=== PATIENT | female | born 1965 | race African-American/Black ===

== ENCOUNTER 2016-05-27 11:12 | Inpatient (IN) | payer MEDICAID, OTHER ==
[~2016-05-27] VITALS: Ht 33 cm; Wt 183.4 kg
[~2016-05-27 11:12] MED LIST: ALBU18 IN; ALPR1TAB2 PO; ASPI81TA27 PO; ATEN-60 PO; BACL10TA PO; BECL80AE9 IN; DIPH50TA PO; FURO80TA PO; GABA600T PO; HYDR-2651 PO; INSLANTI SC; INSUINJ; MECL25CH20 PO; NOR10T PO; POTA20PO13 PO; SIMV-13 PO; [UNRECOGNIZED DRUG - CODE] TL
[2016-05-27 11:48] LABS: Basophils # (auto) 0 uL; Basophils % (auto) 0.4 % (0.0-2.0); DEFINITIVE VIEW TRANSMISSION; Eosinophils # (auto) 0.3 uL; Eosinophils % (auto) 4.6 % (0.0-7.0); Hematocrit 45.1 % (36.0-46.0); Hemoglobin 14.4 g/dL (12.2-16.2); Lymphocytes # (auto) 1.8 uL; Lymphocytes % (auto) 28.8 % (10.0-50.0); Mean Corpuscular Hemoglobin 26.8 pg (28.0-32.0); Mean Corpuscular Volume 83.8 fL (80.0-100.0); Mean Platelet Volume 8.2 fL (7.4-10.4); Monocytes # (auto) 0.6 uL; Monocytes % (auto) 10.1 % (0.0-12.0); Neutrophils # (auto) 3.5 uL; Neutrophils % (auto) 56.1 % (37.0-80.0); Platelet Count (auto) 299 10^3/uL (140-450); Red Cell Distribution Width 13.9 % (11.6-16.0); White Blood Cell 6.2 10^3/uL (4.4-10.8)
[2016-05-27 12:17] LABS: Albumin 3.2 g/dL (3.4-5.0); Alkaline Phosphatase 136 U/L (45-117); Anion Gap 8 (5-15); Aspartate Aminotransferase 20 U/L (15-37); Bilirubin, Total 0.2 mg/dL (0.2-1.0); Blood Urea Nitrogen 15 mg/dL (7-18); Calcium 8.7 mg/dL (8.5-10.1); Carbon Dioxide 32 mmol/L (21-32); Chloride 99 mmol/L (98-107); GFR African American 80 mL/min; GFR Non-African American 66 mL/min; Glucose 369 mg/dL (74-106); Potassium 4.5 mmol/L (3.5-5.1); Sodium 139 mmol/L (136-145); Total Protein 6.7 g/dL (6.4-8.2)
[2016-05-27 12:50] LABS: Urine Bilirubin Negative (Negative); Urine Blood Negative /uL (Negative); Urine Color Yellow (Yellow); Urine Ketone Negative (Negative); Urine Nitrite Negative (Negative); Urine RBC <1 /hpf (0 - 4); Urine Urobilinogen Normal (Negative)
[2016-05-27 12:53] LABS: Urine Glucose 4+ mg/dL (Normal)
[2016-05-27] MEDS ORDERED: SODIUM CHLORIDE 0.9% 1,000 ML IVB ONE (13:22)
[2016-05-27] MEDS ORDERED: cefTRIAXone 1GM/50ML D5W 50 ML IV ONE (13:30)
[2016-05-27] MEDS ORDERED: LORazepam 2MG/ML-1ML VIAL ONE (13:41)
[2016-05-27] MEDS ORDERED: LORazepam 2MG/ML-1ML VIAL IV ONE (13:45)
[2016-05-27 15:03] LABS: Magnesium 2.1 mg/dL (1.6-2.6)
[2016-05-27] MEDS ORDERED: NALBUPHINE HCL 10 MG/1ml INJECTION IV ONE (16:30)
[2016-05-27] MEDS ORDERED: BACLOFEN 10 MG TAB PO PRN (17:30)
[2016-05-27] MEDS ORDERED: hydrALAZINE HCL 25 MG TAB PO PRN (17:30)
[2016-05-27] MEDS ORDERED: DEXTROSE (50%) 50ML SYRG IV PRN (17:30)
[2016-05-27] MEDS ORDERED: ACETAMINOPHEN 325 MG TAB PO PRN (17:45)
[2016-05-27] MEDS ORDERED: DOCUSATE SOD 100 MG CAP PO PRN (17:45)
[2016-05-27] MEDS ORDERED: TEMAZEPAM 15 MG CAP PO PRN (17:45)
[2016-05-27] MEDS ORDERED: NITROGLYCERIN 0.4 MG SL TAB SL PRN (17:45)
[2016-05-27] MEDS ORDERED: ONDANSETRON HCL 4 MG/2 ML VIAL IV PRN (17:45)
[2016-05-27] MEDS ORDERED: IPRATROPIUM BROM 0.5 MG/2.5ML INH SOL ONE (17:56)
[2016-05-27] MEDS ORDERED: ALBUTEROL SULF 2.5 MG/0.5ML(0.5%) NEB SOLN ONE (17:56)
[2016-05-27] MEDS: IPRATROPIUM BROM 0.5 MG/2.5ML INH SOL NEB SCH ×2 (18:25→22:43)
[2016-05-27] MEDS: LORazepam 2MG/ML-1ML VIAL IV PRN (18:26)
[2016-05-27] MEDS: ALBUTEROL SULF 2.5 MG/0.5ML(0.5%) NEB SOLN NEB SCH ×2 (18:26→22:43)
[2016-05-27] MEDS: INSULIN 70/30 1unit/0.01ml Susp (100units/ml) SC SCH (19:08)
[2016-05-27 19:39] VITALS: BP 120/59
[2016-05-27 19:40] VITALS: BP 116/71
[2016-05-27 20:00] VITALS: BP 116/71
[2016-05-27] MEDS: FAMOTIDINE 20 MG TAB PO SCH (21:36)
[2016-05-27] MEDS: MECLIZINE HCL 25 MG TAB PO SCH (21:37)
[2016-05-27] MEDS: ATORVASTATIN 20 MG TAB PO SCH (21:37)
[2016-05-27] MEDS: HYDROcodone-ACET 5/325MG TAB PO PRN (21:38)
[2016-05-27] MEDS: INSULIN DETEMIR(LEVEMIR) 1unit/0.01ml Soln (100units/ml) SC SCH (21:58)
[2016-05-27] MEDS: ACCU-CHEK COMFORT CURVE STRIP VI SCH (21:58)
[2016-05-27] MEDS: BUDESONIDE (INHALATION) 0.5 MG/2 ML NEB NEB SCH (22:43)
[2016-05-27] MEDS: SODIUM CHLOR 0.9% PF (SALINE LOCK) 10ML VIAL IV SCH (22:48)
[2016-05-27] MEDS: InsuLIN REG 1unit/0.01ml Soln (100units/ml) SC SCH (23:05)
[2016-05-28] MEDS: LORazepam 2MG/ML-1ML VIAL IV PRN ×4 (01:37→23:15)
[2016-05-28] MEDS: IPRATROPIUM BROM 0.5 MG/2.5ML INH SOL NEB SCH ×6 (02:30→22:45)
[2016-05-28] MEDS: ALBUTEROL SULF 2.5 MG/0.5ML(0.5%) NEB SOLN NEB SCH ×6 (02:30→22:45)
[2016-05-28 05:00] VITALS: BP 140/65
[2016-05-28 06:24] LABS: Basophils # (auto) 0 uL; Basophils % (auto) 0.4 % (0.0-2.0); DEFINITIVE VIEW TRANSMISSION; Eosinophils # (auto) 0.3 uL; Eosinophils % (auto) 4.3 % (0.0-7.0); Hematocrit 41.5 % (36.0-46.0); Hemoglobin 13.3 g/dL (12.2-16.2); Lymphocytes # (auto) 1.8 uL; Lymphocytes % (auto) 29.4 % (10.0-50.0); Mean Corpuscular Hemoglobin 26.9 pg (28.0-32.0); Mean Corpuscular Volume 84.1 fL (80.0-100.0); Mean Platelet Volume 8.1 fL (7.4-10.4); Monocytes # (auto) 0.6 uL; Neutrophils # (auto) 3.5 uL; Neutrophils % (auto) 56.9 % (37.0-80.0); Platelet Count (auto) 267 10^3/uL (140-450); Red Cell Distribution Width 14.2 % (11.6-16.0); White Blood Cell 6.2 10^3/uL (4.4-10.8)
[2016-05-28] MEDS: SODIUM CHLOR 0.9% PF (SALINE LOCK) 10ML VIAL IV SCH ×3 (06:32→21:43)
[2016-05-28] MEDS: KETOROLAC TROMETH 30 MG/ML 1ML VIAL IV PRN ×3 (06:32→20:38)
[2016-05-28] MEDS: MECLIZINE HCL 25 MG TAB PO SCH ×3 (06:32→21:58)
[2016-05-28] MEDS: InsuLIN REG 1unit/0.01ml Soln (100units/ml) SC SCH ×4 (06:39→22:04)
[2016-05-28] MEDS: INSULIN DETEMIR(LEVEMIR) 1unit/0.01ml Soln (100units/ml) SC SCH ×2 (06:40→22:02)
[2016-05-28] MEDS: ACCU-CHEK COMFORT CURVE STRIP VI SCH ×4 (06:41→21:51)
[2016-05-28 06:45] LABS: BUN/Creatinine Ratio 14.3; Bilirubin, Total 0.3 mg/dL (0.2-1.0); Calcium 8.8 mg/dL (8.5-10.1); Potassium 3.5 mmol/L (3.5-5.1); Total Protein 6.2 g/dL (6.4-8.2)
[2016-05-28] MEDS: INSULIN 70/30 1unit/0.01ml Susp (100units/ml) SC SCH ×2 (08:00→18:00)
[2016-05-28 09:00] VITALS: BP 133/52
[2016-05-28] MEDS: BUDESONIDE (INHALATION) 0.5 MG/2 ML NEB NEB SCH ×2 (09:58→22:45)
[2016-05-28] MEDS: FAMOTIDINE 20 MG TAB PO SCH ×2 (10:04→21:59)
[2016-05-28] MEDS: MULTIPLE VITAMIN TAB PO SCH (10:04)
[2016-05-28] MEDS: ENOXAPARIN SOD 40 MG/0.4 ML SYRINGE SC SCH (10:04)
[2016-05-28] MEDS: ASPirin-EC 81 mg tab PO SCH (10:04)
[2016-05-28] MEDS: HYDROcodone-ACET 5/325MG TAB PO PRN ×2 (10:31→14:28)
[2016-05-28] MEDS ORDERED: PREG100C PO (12:33)
[2016-05-28 15:00] VITALS: BP 120/77
[2016-05-28] MEDS ORDERED: TRAZ100T2 PO (16:16)
[2016-05-28] MEDS ORDERED: BACL20TA PO (16:16)
[2016-05-28] MEDS ORDERED: ATE50T PO (16:16)
[2016-05-28] MEDS ORDERED: COLC1CAP PO (16:16)
[2016-05-28] MEDS ORDERED: MECL12.554 PO (16:16)
[2016-05-28] MEDS ORDERED: INS7030I SC (16:16)
[2016-05-28] MEDS ORDERED: POTA10TA51 PO (16:16)
[2016-05-28] MEDS ORDERED: PREG75CA PO (16:16)
[2016-05-28] MEDS ORDERED: ALPRAZolam 0.5 MG TAB PO PRN (18:30)
[2016-05-28] MEDS: HYDROcodone-ACET 10/325MG TAB PO PRN (18:54)
[2016-05-28 21:52] VITALS: BP 123/73
[2016-05-28] MEDS: PREGABALIN CAPSULE 75 MG CAP PO SCH (21:58)
[2016-05-28] MEDS: ATORVASTATIN 20 MG TAB PO SCH (21:58)
[2016-05-28] MEDS: traZODone HCL 50 MG TAB PO SCH (21:58)
[2016-05-28] MEDS: ATENOLOL 50 MG TAB PO SCH (21:59)
[2016-05-29] MEDS: HYDROcodone-ACET 10/325MG TAB PO PRN ×5 (01:18→21:11)
[2016-05-29] MEDS: ALBUTEROL SULF 2.5 MG/0.5ML(0.5%) NEB SOLN NEB SCH ×6 (01:20→22:29)
[2016-05-29] MEDS: IPRATROPIUM BROM 0.5 MG/2.5ML INH SOL NEB SCH ×6 (01:20→22:29)
[2016-05-29 05:00] VITALS: BP 114/60
[2016-05-29] MEDS: LORazepam 2MG/ML-1ML VIAL IV PRN ×4 (05:37→23:58)
[2016-05-29] MEDS: SODIUM CHLOR 0.9% PF (SALINE LOCK) 10ML VIAL IV SCH ×3 (05:37→22:58)
[2016-05-29] MEDS: FUROSEMIDE 40 MG TAB PO SCH ×2 (05:38→18:33)
[2016-05-29] MEDS: MECLIZINE HCL 25 MG TAB PO SCH ×3 (05:38→22:59)
[2016-05-29] MEDS: InsuLIN REG 1unit/0.01ml Soln (100units/ml) SC SCH ×4 (06:29→23:11)
[2016-05-29] MEDS: ACCU-CHEK COMFORT CURVE STRIP VI SCH ×4 (06:29→23:02)
[2016-05-29] MEDS: INSULIN DETEMIR(LEVEMIR) 1unit/0.01ml Soln (100units/ml) SC SCH ×2 (06:32→23:09)
[2016-05-29 06:44] LABS: BUN/Creatinine Ratio 15.4; Calcium 8.6 mg/dL (8.5-10.1); Potassium 3.3 mmol/L (3.5-5.1)
[2016-05-29 09:00] VITALS: BP 100/39
[2016-05-29] MEDS: FAMOTIDINE 20 MG TAB PO SCH ×2 (09:27→22:00)
[2016-05-29] MEDS: PREGABALIN CAPSULE 75 MG CAP PO SCH ×2 (09:27→22:00)
[2016-05-29] MEDS: ENOXAPARIN SOD 40 MG/0.4 ML SYRINGE SC SCH (09:27)
[2016-05-29] MEDS: MULTIPLE VITAMIN TAB PO SCH (09:27)
[2016-05-29] MEDS: ATENOLOL 50 MG TAB PO SCH ×2 (09:27→23:01)
[2016-05-29] MEDS: ASPirin-EC 81 mg tab PO SCH (09:27)
[2016-05-29] MEDS: INSULIN 70/30 1unit/0.01ml Susp (100units/ml) SC SCH ×2 (09:38→18:43)
[2016-05-29] MEDS: BUDESONIDE (INHALATION) 0.5 MG/2 ML NEB NEB SCH ×2 (10:58→22:29)
[2016-05-29 13:00] VITALS: BP 113/68
[2016-05-29 17:00] VITALS: BP 150/77
[2016-05-29 22:24] VITALS: BP 112/53
[2016-05-29] MEDS: traZODone HCL 50 MG TAB PO SCH (23:00)
[2016-05-29] MEDS: ATORVASTATIN 20 MG TAB PO SCH (23:00)
[2016-05-30] MEDS: IPRATROPIUM BROM 0.5 MG/2.5ML INH SOL NEB SCH ×6 (02:19→22:06)
[2016-05-30] MEDS: ALBUTEROL SULF 2.5 MG/0.5ML(0.5%) NEB SOLN NEB SCH ×6 (02:19→22:06)
[2016-05-30 04:45] VITALS: BP 100/58
[2016-05-30] MEDS: SODIUM CHLOR 0.9% PF (SALINE LOCK) 10ML VIAL IV SCH ×3 (05:58→22:08)
[2016-05-30] MEDS: MECLIZINE HCL 25 MG TAB PO SCH ×3 (05:58→21:13)
[2016-05-30] MEDS: FUROSEMIDE 40 MG TAB PO SCH ×2 (05:59→18:09)
[2016-05-30] MEDS: ACCU-CHEK COMFORT CURVE STRIP VI SCH ×4 (06:00→22:09)
[2016-05-30] MEDS: INSULIN DETEMIR(LEVEMIR) 1unit/0.01ml Soln (100units/ml) SC SCH ×2 (06:01→22:20)
[2016-05-30] MEDS: InsuLIN REG 1unit/0.01ml Soln (100units/ml) SC SCH ×4 (06:02→22:21)
[2016-05-30] MEDS: KETOROLAC TROMETH 30 MG/ML 1ML VIAL IV PRN ×3 (08:28→20:47)
[2016-05-30] MEDS: LORazepam 2MG/ML-1ML VIAL IV PRN ×3 (08:28→20:47)
[2016-05-30] MEDS: INSULIN 70/30 1unit/0.01ml Susp (100units/ml) SC SCH ×2 (08:56→18:11)
[2016-05-30 09:00] VITALS: BP 110/55
[2016-05-30] MEDS: BUDESONIDE (INHALATION) 0.5 MG/2 ML NEB NEB SCH ×2 (10:26→22:06)
[2016-05-30] MEDS: ENOXAPARIN SOD 40 MG/0.4 ML SYRINGE SC SCH (10:28)
[2016-05-30] MEDS: ATENOLOL 50 MG TAB PO SCH ×2 (10:29→22:00)
[2016-05-30] MEDS: PREGABALIN CAPSULE 75 MG CAP PO SCH ×2 (10:29→21:12)
[2016-05-30] MEDS: ASPirin-EC 81 mg tab PO SCH (10:29)
[2016-05-30] MEDS: MULTIPLE VITAMIN TAB PO SCH (10:29)
[2016-05-30] MEDS: FAMOTIDINE 20 MG TAB PO SCH ×2 (10:30→21:13)
[2016-05-30] MEDS: HYDROcodone-ACET 10/325MG TAB PO PRN ×2 (11:36→18:07)
[2016-05-30 12:59] VITALS: BP 140/69
[2016-05-30 17:00] VITALS: BP 129/70
[2016-05-30 20:44] VITALS: BP 129/70
[2016-05-30] MEDS: ATORVASTATIN 20 MG TAB PO SCH (21:12)
[2016-05-30] MEDS: traZODone HCL 50 MG TAB PO SCH (21:13)
[2016-05-30 22:00] VITALS: BP 104/51
[2016-05-31] MEDS: LORazepam 2MG/ML-1ML VIAL IV PRN ×2 (02:49→09:18)
[2016-05-31] MEDS: KETOROLAC TROMETH 30 MG/ML 1ML VIAL IV PRN ×3 (02:49→15:17)
[2016-05-31] MEDS: ALBUTEROL SULF 2.5 MG/0.5ML(0.5%) NEB SOLN NEB SCH ×4 (03:30→14:47)
[2016-05-31] MEDS: IPRATROPIUM BROM 0.5 MG/2.5ML INH SOL NEB SCH ×4 (03:30→14:47)
[2016-05-31 05:00] VITALS: BP 113/55
[2016-05-31] MEDS: FUROSEMIDE 40 MG TAB PO SCH ×2 (05:20→17:43)
[2016-05-31] MEDS: MECLIZINE HCL 25 MG TAB PO SCH ×2 (05:20→13:49)
[2016-05-31] MEDS: InsuLIN REG 1unit/0.01ml Soln (100units/ml) SC SCH ×3 (05:59→17:09)
[2016-05-31] MEDS: ACCU-CHEK COMFORT CURVE STRIP VI SCH ×3 (05:59→17:08)
[2016-05-31] MEDS: INSULIN DETEMIR(LEVEMIR) 1unit/0.01ml Soln (100units/ml) SC SCH ×2 (05:59→09:46)
[2016-05-31] MEDS: SODIUM CHLOR 0.9% PF (SALINE LOCK) 10ML VIAL IV SCH ×2 (06:00→13:49)
[2016-05-31] MEDS: INSULIN 70/30 1unit/0.01ml Susp (100units/ml) SC SCH ×2 (08:00→17:43)
[2016-05-31 08:58] VITALS: BP 135/60
[2016-05-31] MEDS: MULTIPLE VITAMIN TAB PO SCH (09:18)
[2016-05-31] MEDS: ENOXAPARIN SOD 40 MG/0.4 ML SYRINGE SC SCH (09:18)
[2016-05-31] MEDS: FAMOTIDINE 20 MG TAB PO SCH (09:19)
[2016-05-31] MEDS: ASPirin-EC 81 mg tab PO SCH (09:19)
[2016-05-31] MEDS: PREGABALIN CAPSULE 75 MG CAP PO SCH (09:19)
[2016-05-31] MEDS: ATENOLOL 50 MG TAB PO SCH (09:20)
[2016-05-31] MEDS: BUDESONIDE (INHALATION) 0.5 MG/2 ML NEB NEB SCH (10:23)
[2016-05-31 10:51] VITALS: BP 113/55
[2016-05-31 12:55] VITALS: BP 120/59
[2016-05-31] MEDS: HYDROcodone-ACET 10/325MG TAB PO PRN (13:58)
[2016-05-31 16:38] VITALS: BP 143/48
[2016-05-31 18:28] VITALS: BP 113/55
== END 2016-05-31 18:27 | disposition home or self-care (01) | DRG 47 ==
LOC: EDBD 11:12 → ER 11:18 → TELE 11:19 → TELE-EAST 19:45 → EAST 05-30 06:31
PROVIDERS: ADMIT Internal Medicine; ATTEND Internal Medicine
DX: G45.9 Transient cerebral ischemic attack, unspecified (principal); G93.49 Other encephalopathy; G93.41 Metabolic encephalopathy; I50.9 Heart failure, unspecified; E10.21 Type 1 diabetes mellitus with diabetic nephropathy; I25.10 Atherosclerotic heart disease of native coronary artery without angina pectoris; E10.22 Type 1 diabetes mellitus with diabetic chronic kidney disease; G47.33 Obstructive sleep apnea (adult) (pediatric); G43.709 Chronic migraine without aura, not intractable, without status migrainosus; F17.200 Nicotine dependence, unspecified, uncomplicated; E66.2 Morbid (severe) obesity with alveolar hypoventilation; E44.1 Mild protein-calorie malnutrition; E78.5 Hyperlipidemia, unspecified; F32.9 Major depressive disorder, single episode, unspecified; F41.9 Anxiety disorder, unspecified; I13.0 Hypertensive heart and chronic kidney disease with heart failure and stage 1 through stage 4 chronic kidney disease, or unspecified chronic kidney disease; J44.9 Chronic obstructive pulmonary disease, unspecified; E10.42 Type 1 diabetes mellitus with diabetic polyneuropathy; G56.03 Carpal tunnel syndrome, bilateral upper limbs; N18.2 Chronic kidney disease, stage 2 (mild); Z79.4 Long term (current) use of insulin; Z79.82 Long term (current) use of aspirin; Z82.49 Family history of ischemic heart disease and other diseases of the circulatory system; Z82.5 Family history of asthma and other chronic lower respiratory diseases; Z83.3 Family history of diabetes mellitus; Z90.49 Acquired absence of other specified parts of digestive tract; Z98.890 Other specified postprocedural states; Z87.440 Personal history of urinary (tract) infections; Z80.9 Family history of malignant neoplasm, unspecified; I25.2 Old myocardial infarction; Z88.1 Allergy status to other antibiotic agents; Z88.5 Allergy status to narcotic agent; Z88.0 Allergy status to penicillin; Z88.2 Allergy status to sulfonamides; Z86.73 Personal history of transient ischemic attack (TIA), and cerebral infarction without residual deficits
CPT/HCPCS: 36415; 51702; 70450; 71010; 80048; 80053; 80320; 81001; 82962; 83036; 83605; 83735; 84443; 84484; 85025; 87040; 92610; 93005; 93306; 93886; 94640; 94761; 95819; 96361; 96365; 96375; 97001; 97110; 97116; 97530; G0434; J0696; J1815; J1885

== ENCOUNTER 2016-06-30 09:07 | Inpatient (IN) | payer MEDICAID ==
[~2016-06-30] VITALS: Ht 172.7 cm; Wt 52.3 kg
[~2016-06-30 09:07] MED LIST changes: +ATE50T PO; -ATEN-60 PO; -BACL10TA PO; +BACL20TA PO; +COLC1CAP PO; -DIPH50TA PO; -GABA600T PO; +INS7030I SC; +MECL12.554 PO; -MECL25CH20 PO; +POTA10TA51 PO; -POTA20PO13 PO; +PREG75CA PO; +TRAZ100T2 PO; -[UNRECOGNIZED DRUG - CODE] TL
[2016-06-30] MEDS ORDERED: LORazepam 2MG/ML-1ML VIAL IV ONE (11:30)
[2016-06-30] MEDS ORDERED: KETOROLAC TROMETH 30 MG/ML 1ML VIAL IV ONE (12:45)
[2016-06-30 13:29] LABS: Basophils # (auto) 0 uL; Basophils % (auto) 0.4 % (0.0-2.0); DEFINITIVE VIEW TRANSMISSION; Eosinophils # (auto) 0.3 uL; Hematocrit 40.8 % (36.0-46.0); Hemoglobin 12.5 g/dL (12.2-16.2); Lymphocytes # (auto) 1.3 uL; Lymphocytes % (auto) 23.7 % (10.0-50.0); Mean Corpuscular Hgb Conc. 30.6 g/dL (32.0-36.0); Mean Platelet Volume 7.9 fL (7.4-10.4); Monocytes # (auto) 0.5 uL; Monocytes % (auto) 9.4 % (0.0-12.0); Neutrophils # (auto) 3.4 uL; Neutrophils % (auto) 61.5 % (37.0-80.0); Platelet Count (auto) 289 10^3/uL (140-450); Red Cell Distribution Width 13.7 % (11.6-16.0); White Blood Cell 5.5 10^3/uL (4.4-10.8)
[2016-06-30 13:49] LABS: INR 1.03 (0.9-1.15); Prothrombin Time 10.6 sec (9.37-12.3)
[2016-06-30 13:59] LABS: Albumin 3.1 g/dL (3.4-5.0); Alkaline Phosphatase 80 U/L (45-117); Anion Gap 7 (5-15); Aspartate Aminotransferase 21 U/L (15-37); BUN/Creatinine Ratio 13.8; Bilirubin, Total 0.2 mg/dL (0.2-1.0); Blood Urea Nitrogen 11 mg/dL (7-18); Calcium 8.7 mg/dL (8.5-10.1); Carbon Dioxide 31 mmol/L (21-32); Chloride 103 mmol/L (98-107); GFR African American 97 mL/min; GFR Non-African American 80 mL/min; Glucose 206 mg/dL (74-106); Potassium 3.9 mmol/L (3.5-5.1); Sodium 141 mmol/L (136-145); Total Protein 6.6 g/dL (6.4-8.2)
[2016-06-30] MEDS ORDERED: hydrALAZINE HCL 25 MG TAB PO PRN (16:15)
[2016-06-30] MEDS ORDERED: ALBUTEROL SULFATE IN PRN (16:15)
[2016-06-30] MEDS ORDERED: DEXTROSE (50%) 50ML SYRG IV PRN (16:15)
[2016-06-30] MEDS ORDERED: PATIENTS OWN MEDICATION (Beclomethasone Dipropionate (Qvar) 80 MCG) IN PRN ×2 (16:15)
[2016-06-30] MEDS ORDERED: ACETAMINOPHEN 500 MG TAB PO PRN (16:15)
[2016-06-30] MEDS ORDERED: NITROGLYCERIN 0.4 MG SL TAB SL PRN (16:15)
[2016-06-30] MEDS ORDERED: ASPirin-EC 81 mg tab PO ONE (16:30)
[2016-06-30] MEDS ORDERED: ENOXAPARIN SOD 40 MG/0.4 ML SYRINGE SC ONE (16:30)
[2016-06-30] MEDS: ACCU-CHEK COMFORT CURVE STRIP VI SCH ×2 (17:17→21:56)
[2016-06-30] MEDS: InsuLIN REG 1unit/0.01ml Soln (100units/ml) SC SCH ×2 (17:26→22:05)
[2016-06-30 17:28] LABS: Temperature: 23.7 C (20.0-25.0)
[2016-06-30] MEDS ORDERED: PATIENTS OWN MEDICATION (Simvastatin 1 TAB) PO SCH ×2 (18:00)
[2016-06-30] MEDS ORDERED: PATIENTS OWN MEDICATION (Trazodone Hcl 1 TAB) PO SCH (18:00)
[2016-06-30] MEDS: ALBUTEROL SULF 2.5 MG/0.5ML(0.5%) NEB SOLN NEB SCH (18:00)
[2016-06-30] MEDS: PROMETHAZINE HCL 25 MG/ML 1ML IV PRN (19:03)
[2016-06-30] MEDS: HYDROmorphone HCL 2 MG/ML VL IV PRN (19:03)
[2016-06-30] MEDS ORDERED: ALPRAZolam 0.25 MG TAB PO PRN (20:00)
[2016-06-30 20:14] VITALS: BP 139/79
[2016-06-30] MEDS ORDERED: CITALOPRAM HYDROBR 20 MG TAB PO ONE (20:15)
[2016-06-30 20:36] VITALS: BP 134/78
[2016-06-30] MEDS: HYDROcodone-ACET 10/325MG TAB PO SCH ×2 (21:06→21:23)
[2016-06-30] MEDS: POTASSIUM CHL 20 Meq TABLET PO SCH (21:19)
[2016-06-30] MEDS: ATORVASTATIN 20 MG TAB PO SCH (21:21)
[2016-06-30] MEDS: COLCHICINE 0.6 MG CAP PO SCH (21:22)
[2016-06-30] MEDS: FUROSEMIDE 40 MG TAB PO SCH (21:25)
[2016-06-30] MEDS: traZODone HCL 50 MG TAB PO SCH (21:26)
[2016-06-30] MEDS: PREGABALIN CAPSULE 75 MG CAP PO SCH (21:27)
[2016-06-30] MEDS: BACLOFEN 10 MG TAB PO SCH (21:27)
[2016-06-30] MEDS: ATENOLOL 50 MG TAB PO SCH (21:28)
[2016-06-30 21:52] VITALS: BP 139/73
[2016-06-30] MEDS ORDERED: PATIENTS OWN MEDICATION (Colchicine 0.6 MG) PO SCH (22:00)
[2016-06-30] MEDS ORDERED: PATIENTS OWN MEDICATION (Baclofen 10 MG) PO SCH ×2 (22:00)
[2016-06-30] MEDS ORDERED: FUROSEMIDE 80 MG PO SCH (22:00)
[2016-06-30] MEDS ORDERED: ALPRAZOLAM PO SCH (22:00)
[2016-06-30] MEDS ORDERED: INSULIN GLARGINE SC SCH (22:00)
[2016-06-30] MEDS ORDERED: POTASSIUM CHLORIDE 40 MEQ PO SCH (22:00)
[2016-06-30] MEDS ORDERED: ATORVASTATIN 20 MG TAB PO SCH (22:00)
[2016-06-30] MEDS: INSULIN DETEMIR(LEVEMIR) 1unit/0.01ml Soln (100units/ml) SC SCH (22:04)
[2016-07-01] MEDS: ALBUTEROL SULF 2.5 MG/0.5ML(0.5%) NEB SOLN NEB SCH ×4 (00:31→19:22)
[2016-07-01] MEDS: HYDROmorphone HCL 2 MG/ML VL IV PRN ×4 (01:25→20:28)
[2016-07-01] MEDS: PROMETHAZINE HCL 25 MG/ML 1ML IV PRN ×3 (01:33→20:28)
[2016-07-01] MEDS: HYDROcodone-ACET 5/325MG TAB PO PRN (04:05)
[2016-07-01 05:30] VITALS: BP 141/74
[2016-07-01] MEDS: BACLOFEN 10 MG TAB PO SCH ×3 (06:27→22:02)
[2016-07-01] MEDS: HYDROcodone-ACET 10/325MG TAB PO SCH ×4 (06:27→22:03)
[2016-07-01] MEDS: ACCU-CHEK COMFORT CURVE STRIP VI SCH ×4 (06:37→22:04)
[2016-07-01] MEDS: InsuLIN REG 1unit/0.01ml Soln (100units/ml) SC SCH ×4 (06:42→22:22)
[2016-07-01] MEDS: BUDESONIDE (INHALATION) 0.5 MG/2 ML NEB NEB PRN (07:27)
[2016-07-01 08:33] VITALS: BP 135/83
[2016-07-01] MEDS: COLCHICINE 0.6 MG CAP PO SCH ×2 (09:55→22:00)
[2016-07-01] MEDS: POTASSIUM CHL 20 Meq TABLET PO SCH ×2 (09:57→22:01)
[2016-07-01] MEDS: CITALOPRAM HYDROBR 20 MG TAB PO SCH (09:57)
[2016-07-01] MEDS: MECLIZINE HCL 25 MG TAB PO SCH (09:58)
[2016-07-01] MEDS: PREGABALIN CAPSULE 75 MG CAP PO SCH ×2 (09:58→22:00)
[2016-07-01] MEDS: FUROSEMIDE 40 MG TAB PO SCH ×2 (09:58→22:01)
[2016-07-01] MEDS: ENOXAPARIN SOD 40 MG/0.4 ML SYRINGE SC SCH ×2 (09:59→22:03)
[2016-07-01] MEDS: ATENOLOL 50 MG TAB PO SCH ×2 (09:59→22:03)
[2016-07-01] MEDS: CLOPIDOGREL BISULFATE 75 MG TAB PO SCH (09:59)
[2016-07-01] MEDS ORDERED: ASPirin-EC 81 mg tab PO SCH (10:00)
[2016-07-01] MEDS ORDERED: ENOXAPARIN SOD 40 MG/0.4 ML SYRINGE SC SCH (10:00)
[2016-07-01] MEDS ORDERED: MECLIZINE HCL 25 MG PO SCH (10:00)
[2016-07-01] MEDS: INSULIN DETEMIR(LEVEMIR) 1unit/0.01ml Soln (100units/ml) SC SCH ×2 (11:08→22:22)
[2016-07-01 11:57] LABS: Urine Bilirubin Negative (Negative); Urine Blood Negative /uL (Negative); Urine Color Yellow (Yellow); Urine Ketone Negative (Negative); Urine Mucus FEW (None Seen); Urine Nitrite Negative (Negative); Urine RBC 6 /hpf (0 - 4); Urine Urobilinogen Normal (Negative); Urine pH 5.5 (5.0-8.0)
[2016-07-01 12:03] LABS: Urine Glucose 1+ mg/dL (Normal)
[2016-07-01 12:51] VITALS: BP 113/72
[2016-07-01] MEDS: ALPRAZolam 0.5 MG TAB PO SCH ×2 (14:08→22:00)
[2016-07-01 16:27] VITALS: BP 120/71
[2016-07-01 22:00] VITALS: BP 116/60
[2016-07-01] MEDS: ATORVASTATIN 20 MG TAB PO SCH (22:01)
[2016-07-01] MEDS: traZODone HCL 50 MG TAB PO SCH (22:05)
[2016-07-02] MEDS: HYDROmorphone HCL 2 MG/ML VL IV PRN ×5 (00:31→19:44)
[2016-07-02] MEDS: PROMETHAZINE HCL 25 MG/ML 1ML IV PRN ×4 (00:31→19:44)
[2016-07-02] MEDS: ALBUTEROL SULF 2.5 MG/0.5ML(0.5%) NEB SOLN NEB SCH ×4 (00:39→18:34)
[2016-07-02 05:00] VITALS: BP 118/55
[2016-07-02] MEDS: ALPRAZolam 0.5 MG TAB PO SCH ×3 (06:35→22:36)
[2016-07-02] MEDS: BACLOFEN 10 MG TAB PO SCH ×3 (06:35→22:35)
[2016-07-02] MEDS: ACCU-CHEK COMFORT CURVE STRIP VI SCH ×4 (06:35→22:33)
[2016-07-02] MEDS: HYDROcodone-ACET 10/325MG TAB PO SCH ×4 (06:35→22:48)
[2016-07-02] MEDS: InsuLIN REG 1unit/0.01ml Soln (100units/ml) SC SCH ×4 (06:36→22:34)
[2016-07-02 09:00] VITALS: BP 126/72
[2016-07-02] MEDS: COLCHICINE 0.6 MG CAP PO SCH ×2 (09:59→22:38)
[2016-07-02] MEDS: MECLIZINE HCL 25 MG TAB PO SCH (09:59)
[2016-07-02] MEDS: CITALOPRAM HYDROBR 20 MG TAB PO SCH (09:59)
[2016-07-02] MEDS: CLOPIDOGREL BISULFATE 75 MG TAB PO SCH (10:00)
[2016-07-02] MEDS: ATENOLOL 50 MG TAB PO SCH ×2 (10:00→22:37)
[2016-07-02] MEDS: FUROSEMIDE 40 MG TAB PO SCH ×2 (10:00→22:39)
[2016-07-02] MEDS: POTASSIUM CHL 20 Meq TABLET PO SCH ×2 (10:00→22:38)
[2016-07-02] MEDS: PREGABALIN CAPSULE 75 MG CAP PO SCH ×2 (10:00→22:38)
[2016-07-02] MEDS: ENOXAPARIN SOD 40 MG/0.4 ML SYRINGE SC SCH ×2 (10:00→22:49)
[2016-07-02] MEDS: INSULIN DETEMIR(LEVEMIR) 1unit/0.01ml Soln (100units/ml) SC SCH ×2 (10:48→22:34)
[2016-07-02 13:00] VITALS: BP 123/56
[2016-07-02 17:00] VITALS: BP 144/82
[2016-07-02] MEDS: BUDESONIDE (INHALATION) 0.5 MG/2 ML NEB NEB PRN (18:35)
[2016-07-02 22:00] VITALS: BP 119/60
[2016-07-02] MEDS: ATORVASTATIN 20 MG TAB PO SCH (22:35)
[2016-07-02] MEDS: traZODone HCL 50 MG TAB PO SCH (22:37)
[2016-07-03] VITALS (7 sets, daily range): BP systolic 109–142; BP diastolic 63–85
[2016-07-03] MEDS: PROMETHAZINE HCL 25 MG/ML 1ML IV PRN ×5 (00:05→21:24)
[2016-07-03] MEDS: HYDROmorphone HCL 2 MG/ML VL IV PRN ×5 (00:05→21:24)
[2016-07-03] MEDS: ALBUTEROL SULF 2.5 MG/0.5ML(0.5%) NEB SOLN NEB SCH ×4 (00:38→19:17)
[2016-07-03] MEDS: ALPRAZolam 0.5 MG TAB PO SCH ×3 (06:23→22:00)
[2016-07-03] MEDS: HYDROcodone-ACET 10/325MG TAB PO SCH ×4 (06:23→22:00)
[2016-07-03] MEDS: BACLOFEN 10 MG TAB PO SCH ×3 (06:23→22:00)
[2016-07-03] MEDS: ACCU-CHEK COMFORT CURVE STRIP VI SCH ×4 (06:43→22:00)
[2016-07-03] MEDS: InsuLIN REG 1unit/0.01ml Soln (100units/ml) SC SCH ×4 (06:43→22:00)
[2016-07-03] MEDS: ENOXAPARIN SOD 40 MG/0.4 ML SYRINGE SC SCH ×2 (10:53→22:00)
[2016-07-03] MEDS: POTASSIUM CHL 20 Meq TABLET PO SCH ×2 (10:54→22:00)
[2016-07-03] MEDS: MECLIZINE HCL 25 MG TAB PO SCH (10:55)
[2016-07-03] MEDS: PREGABALIN CAPSULE 75 MG CAP PO SCH ×2 (10:55→22:00)
[2016-07-03] MEDS: CITALOPRAM HYDROBR 20 MG TAB PO SCH (10:57)
[2016-07-03] MEDS: FUROSEMIDE 40 MG TAB PO SCH ×2 (10:57→22:00)
[2016-07-03] MEDS: ATENOLOL 50 MG TAB PO SCH ×2 (10:58→22:00)
[2016-07-03] MEDS: COLCHICINE 0.6 MG CAP PO SCH ×2 (10:59→22:00)
[2016-07-03] MEDS: CLOPIDOGREL BISULFATE 75 MG TAB PO SCH (10:59)
[2016-07-03] MEDS: INSULIN DETEMIR(LEVEMIR) 1unit/0.01ml Soln (100units/ml) SC SCH ×2 (11:13→22:00)
[2016-07-03] MEDS: BUDESONIDE (INHALATION) 0.5 MG/2 ML NEB NEB PRN (19:17)
[2016-07-03] MEDS: traZODone HCL 50 MG TAB PO SCH (22:00)
[2016-07-03] MEDS: ATORVASTATIN 20 MG TAB PO SCH (22:00)
[2016-07-04] VITALS (7 sets, daily range): BP systolic 103–139; BP diastolic 54–97
[2016-07-04] MEDS: ALBUTEROL SULF 2.5 MG/0.5ML(0.5%) NEB SOLN NEB SCH ×4 (00:25→19:05)
[2016-07-04] MEDS: HYDROcodone-ACET 10/325MG TAB PO SCH ×4 (05:52→22:25)
[2016-07-04] MEDS: BACLOFEN 10 MG TAB PO SCH ×3 (05:52→22:24)
[2016-07-04] MEDS: ALPRAZolam 0.5 MG TAB PO SCH ×3 (05:53→22:22)
[2016-07-04] MEDS: MECLIZINE HCL 25 MG TAB PO SCH ×2 (05:53→10:36)
[2016-07-04] MEDS: HYDROmorphone HCL 2 MG/ML VL IV PRN ×4 (05:54→20:54)
[2016-07-04] MEDS: ACCU-CHEK COMFORT CURVE STRIP VI SCH ×4 (05:54→22:00)
[2016-07-04] MEDS: InsuLIN REG 1unit/0.01ml Soln (100units/ml) SC SCH ×4 (05:55→22:00)
[2016-07-04] MEDS: PROMETHAZINE HCL 25 MG/ML 1ML IV PRN ×3 (10:34→20:59)
[2016-07-04] MEDS: ENOXAPARIN SOD 40 MG/0.4 ML SYRINGE SC SCH ×2 (10:35→22:27)
[2016-07-04] MEDS: POTASSIUM CHL 20 Meq TABLET PO SCH ×2 (10:35→22:27)
[2016-07-04] MEDS: CITALOPRAM HYDROBR 20 MG TAB PO SCH (10:36)
[2016-07-04] MEDS: FUROSEMIDE 40 MG TAB PO SCH ×2 (10:36→22:24)
[2016-07-04] MEDS: CLOPIDOGREL BISULFATE 75 MG TAB PO SCH (10:37)
[2016-07-04] MEDS: PREGABALIN CAPSULE 75 MG CAP PO SCH ×2 (10:37→22:25)
[2016-07-04] MEDS: COLCHICINE 0.6 MG CAP PO SCH ×2 (10:37→22:26)
[2016-07-04] MEDS: ATENOLOL 50 MG TAB PO SCH ×2 (10:38→22:26)
[2016-07-04] MEDS: INSULIN DETEMIR(LEVEMIR) 1unit/0.01ml Soln (100units/ml) SC SCH ×2 (10:55→22:00)
[2016-07-04] MEDS: BUDESONIDE (INHALATION) 0.5 MG/2 ML NEB NEB PRN ×2 (13:19→19:06)
[2016-07-04] MEDS: ATORVASTATIN 20 MG TAB PO SCH (22:23)
[2016-07-04] MEDS: traZODone HCL 50 MG TAB PO SCH (22:25)
[2016-07-05] MEDS: ALBUTEROL SULF 2.5 MG/0.5ML(0.5%) NEB SOLN NEB SCH ×4 (00:27→18:00)
[2016-07-05] MEDS: HYDROmorphone HCL 2 MG/ML VL IV PRN ×4 (03:36→22:19)
[2016-07-05] MEDS: PROMETHAZINE HCL 25 MG/ML 1ML IV PRN ×4 (03:39→22:19)
[2016-07-05 05:00] VITALS: BP 110/70
[2016-07-05] MEDS: ALPRAZolam 0.5 MG TAB PO SCH ×3 (06:24→22:20)
[2016-07-05] MEDS: ACCU-CHEK COMFORT CURVE STRIP VI SCH ×4 (06:25→22:19)
[2016-07-05] MEDS: BACLOFEN 10 MG TAB PO SCH ×3 (06:25→22:22)
[2016-07-05] MEDS: HYDROcodone-ACET 10/325MG TAB PO SCH ×4 (06:25→22:00)
[2016-07-05] MEDS: BUDESONIDE (INHALATION) 0.5 MG/2 ML NEB NEB PRN (06:27)
[2016-07-05 08:42] VITALS: BP 115/76
[2016-07-05] MEDS: PREGABALIN CAPSULE 75 MG CAP PO SCH ×2 (10:29→22:21)
[2016-07-05] MEDS: INSULIN DETEMIR(LEVEMIR) 1unit/0.01ml Soln (100units/ml) SC SCH ×2 (10:29→22:45)
[2016-07-05] MEDS: MECLIZINE HCL 25 MG TAB PO SCH (10:30)
[2016-07-05] MEDS: ATENOLOL 50 MG TAB PO SCH ×2 (10:30→22:00)
[2016-07-05] MEDS: COLCHICINE 0.6 MG CAP PO SCH ×2 (10:30→22:23)
[2016-07-05] MEDS: CLOPIDOGREL BISULFATE 75 MG TAB PO SCH (10:30)
[2016-07-05] MEDS: POTASSIUM CHL 20 Meq TABLET PO SCH ×2 (10:30→22:23)
[2016-07-05] MEDS: CITALOPRAM HYDROBR 20 MG TAB PO SCH (10:30)
[2016-07-05] MEDS: ENOXAPARIN SOD 40 MG/0.4 ML SYRINGE SC SCH ×2 (10:31→22:20)
[2016-07-05] MEDS: FUROSEMIDE 40 MG TAB PO SCH ×2 (10:31→22:23)
[2016-07-05] MEDS: InsuLIN REG 1unit/0.01ml Soln (100units/ml) SC SCH ×4 (11:30→22:44)
[2016-07-05 13:00] VITALS: BP 107/44
[2016-07-05 17:15] VITALS: BP 112/74
[2016-07-05 21:30] VITALS: BP 100/48
[2016-07-05] MEDS: ATORVASTATIN 20 MG TAB PO SCH (22:22)
[2016-07-05] MEDS: traZODone HCL 50 MG TAB PO SCH (22:23)
[2016-07-06] MEDS: ALBUTEROL SULF 2.5 MG/0.5ML(0.5%) NEB SOLN NEB SCH ×4 (00:24→17:54)
[2016-07-06] MEDS: HYDROmorphone HCL 2 MG/ML VL IV PRN ×3 (03:36→14:40)
[2016-07-06] MEDS: PROMETHAZINE HCL 25 MG/ML 1ML IV PRN ×3 (03:36→23:22)
[2016-07-06 04:30] VITALS: BP 114/49
[2016-07-06] MEDS: BACLOFEN 10 MG TAB PO SCH ×3 (06:17→22:34)
[2016-07-06] MEDS: ACCU-CHEK COMFORT CURVE STRIP VI SCH ×4 (06:18→22:24)
[2016-07-06] MEDS: ALPRAZolam 0.5 MG TAB PO SCH ×3 (06:18→22:36)
[2016-07-06] MEDS: HYDROcodone-ACET 10/325MG TAB PO SCH ×4 (06:18→22:35)
[2016-07-06] MEDS: InsuLIN REG 1unit/0.01ml Soln (100units/ml) SC SCH ×4 (06:33→22:30)
[2016-07-06 09:13] VITALS: BP 156/45
[2016-07-06] MEDS: CLOPIDOGREL BISULFATE 75 MG TAB PO SCH (09:15)
[2016-07-06] MEDS: ENOXAPARIN SOD 40 MG/0.4 ML SYRINGE SC SCH ×2 (09:15→22:36)
[2016-07-06] MEDS: COLCHICINE 0.6 MG CAP PO SCH ×2 (09:15→22:32)
[2016-07-06] MEDS: ATENOLOL 50 MG TAB PO SCH ×2 (09:16→22:36)
[2016-07-06] MEDS: CITALOPRAM HYDROBR 20 MG TAB PO SCH (09:16)
[2016-07-06] MEDS: FUROSEMIDE 40 MG TAB PO SCH ×2 (09:16→22:34)
[2016-07-06] MEDS: PREGABALIN CAPSULE 75 MG CAP PO SCH ×2 (09:16→22:35)
[2016-07-06] MEDS: POTASSIUM CHL 20 Meq TABLET PO SCH ×2 (09:17→22:33)
[2016-07-06] MEDS: MECLIZINE HCL 25 MG TAB PO SCH (09:17)
[2016-07-06] MEDS: INSULIN DETEMIR(LEVEMIR) 1unit/0.01ml Soln (100units/ml) SC SCH ×2 (10:49→22:32)
[2016-07-06 13:00] VITALS: BP 149/79
[2016-07-06 16:58] VITALS: BP 129/76
[2016-07-06] MEDS: BUDESONIDE (INHALATION) 0.5 MG/2 ML NEB NEB PRN (17:54)
[2016-07-06 21:30] VITALS: BP 127/75
[2016-07-06] MEDS: traZODone HCL 50 MG TAB PO SCH (22:33)
[2016-07-06] MEDS: ATORVASTATIN 20 MG TAB PO SCH (22:34)
[2016-07-07] MEDS: ALBUTEROL SULF 2.5 MG/0.5ML(0.5%) NEB SOLN NEB SCH ×4 (00:10→19:09)
[2016-07-07 04:33] VITALS: BP 127/75
[2016-07-07 05:00] VITALS: BP 96/61
[2016-07-07] MEDS: BACLOFEN 10 MG TAB PO SCH ×3 (06:24→22:25)
[2016-07-07] MEDS: ALPRAZolam 0.5 MG TAB PO SCH ×3 (06:25→22:27)
[2016-07-07] MEDS: HYDROcodone-ACET 10/325MG TAB PO SCH ×4 (06:25→22:26)
[2016-07-07] MEDS: ACCU-CHEK COMFORT CURVE STRIP VI SCH ×4 (06:25→22:27)
[2016-07-07] MEDS: InsuLIN REG 1unit/0.01ml Soln (100units/ml) SC SCH ×4 (06:36→22:44)
[2016-07-07 09:37] VITALS: BP 146/95
[2016-07-07] MEDS: ENOXAPARIN SOD 40 MG/0.4 ML SYRINGE SC SCH ×2 (09:44→22:27)
[2016-07-07] MEDS: CLOPIDOGREL BISULFATE 75 MG TAB PO SCH (09:44)
[2016-07-07] MEDS: COLCHICINE 0.6 MG CAP PO SCH ×2 (09:45→22:23)
[2016-07-07] MEDS: POTASSIUM CHL 20 Meq TABLET PO SCH ×2 (09:45→22:24)
[2016-07-07] MEDS: FUROSEMIDE 40 MG TAB PO SCH ×2 (09:45→22:25)
[2016-07-07] MEDS: MECLIZINE HCL 25 MG TAB PO SCH (09:45)
[2016-07-07] MEDS: PREGABALIN CAPSULE 75 MG CAP PO SCH ×2 (09:46→22:26)
[2016-07-07] MEDS: ATENOLOL 50 MG TAB PO SCH ×2 (09:46→22:27)
[2016-07-07] MEDS: CITALOPRAM HYDROBR 20 MG TAB PO SCH (09:46)
[2016-07-07] MEDS: INSULIN DETEMIR(LEVEMIR) 1unit/0.01ml Soln (100units/ml) SC SCH ×2 (10:12→22:45)
[2016-07-07 13:00] VITALS: BP 145/64
[2016-07-07 22:00] VITALS: BP 136/59
[2016-07-07] MEDS: traZODone HCL 50 MG TAB PO SCH (22:24)
[2016-07-07] MEDS: ATORVASTATIN 20 MG TAB PO SCH (22:26)
[2016-07-08] VITALS (7 sets, daily range): BP systolic 109–142; BP diastolic 44–64
[2016-07-08] MEDS: HYDROcodone-ACET 5/325MG TAB PO PRN ×2 (01:08→10:00)
[2016-07-08] MEDS: PROMETHAZINE HCL 25 MG/ML 1ML IV PRN ×4 (01:08→22:23)
[2016-07-08] MEDS: ALBUTEROL SULF 2.5 MG/0.5ML(0.5%) NEB SOLN NEB SCH ×4 (01:22→19:16)
[2016-07-08] MEDS: BUDESONIDE (INHALATION) 0.5 MG/2 ML NEB NEB PRN ×2 (06:15→19:16)
[2016-07-08] MEDS: ALPRAZolam 0.5 MG TAB PO SCH ×3 (06:34→21:39)
[2016-07-08] MEDS: ACCU-CHEK COMFORT CURVE STRIP VI SCH ×4 (06:34→21:41)
[2016-07-08] MEDS: HYDROcodone-ACET 10/325MG TAB PO SCH ×4 (06:34→21:37)
[2016-07-08] MEDS: BACLOFEN 10 MG TAB PO SCH ×3 (06:34→21:35)
[2016-07-08] MEDS: InsuLIN REG 1unit/0.01ml Soln (100units/ml) SC SCH ×4 (06:44→22:34)
[2016-07-08] MEDS: COLCHICINE 0.6 MG CAP PO SCH ×2 (09:44→21:39)
[2016-07-08] MEDS: POTASSIUM CHL 20 Meq TABLET PO SCH ×2 (09:45→21:36)
[2016-07-08] MEDS: FUROSEMIDE 40 MG TAB PO SCH ×2 (09:46→21:40)
[2016-07-08] MEDS: PREGABALIN CAPSULE 75 MG CAP PO SCH ×2 (09:47→21:37)
[2016-07-08] MEDS: CLOPIDOGREL BISULFATE 75 MG TAB PO SCH (09:47)
[2016-07-08] MEDS: ATENOLOL 50 MG TAB PO SCH ×2 (09:48→21:36)
[2016-07-08] MEDS: ENOXAPARIN SOD 40 MG/0.4 ML SYRINGE SC SCH ×2 (09:49→21:40)
[2016-07-08] MEDS: CITALOPRAM HYDROBR 20 MG TAB PO SCH (09:49)
[2016-07-08] MEDS: MECLIZINE HCL 25 MG TAB PO SCH (10:00)
[2016-07-08] MEDS: INSULIN DETEMIR(LEVEMIR) 1unit/0.01ml Soln (100units/ml) SC SCH ×2 (10:00→22:31)
[2016-07-08] MEDS: traZODone HCL 50 MG TAB PO SCH (21:38)
[2016-07-08] MEDS: ATORVASTATIN 20 MG TAB PO SCH (21:40)
[2016-07-09] VITALS (8 sets, daily range): BP systolic 105–146; BP diastolic 31–68
[2016-07-09] MEDS: ALBUTEROL SULF 2.5 MG/0.5ML(0.5%) NEB SOLN NEB SCH ×4 (00:30→19:19)
[2016-07-09] MEDS: BACLOFEN 10 MG TAB PO SCH ×3 (05:48→21:40)
[2016-07-09] MEDS: HYDROcodone-ACET 10/325MG TAB PO SCH ×4 (05:48→21:40)
[2016-07-09] MEDS: ALPRAZolam 0.5 MG TAB PO SCH ×3 (05:48→21:34)
[2016-07-09] MEDS: PROMETHAZINE HCL 25 MG/ML 1ML IV PRN ×3 (06:32→19:03)
[2016-07-09] MEDS: InsuLIN REG 1unit/0.01ml Soln (100units/ml) SC SCH ×4 (06:38→22:00)
[2016-07-09] MEDS: ACCU-CHEK COMFORT CURVE STRIP VI SCH ×4 (06:43→22:00)
[2016-07-09] MEDS: HYDROcodone-ACET 5/325MG TAB PO PRN ×2 (08:40→16:20)
[2016-07-09] MEDS: ATENOLOL 50 MG TAB PO SCH ×2 (10:00→21:41)
[2016-07-09] MEDS: INSULIN DETEMIR(LEVEMIR) 1unit/0.01ml Soln (100units/ml) SC SCH ×2 (10:00→22:00)
[2016-07-09] MEDS: ENOXAPARIN SOD 40 MG/0.4 ML SYRINGE SC SCH ×2 (11:35→21:38)
[2016-07-09] MEDS: COLCHICINE 0.6 MG CAP PO SCH ×2 (11:36→21:41)
[2016-07-09] MEDS: CLOPIDOGREL BISULFATE 75 MG TAB PO SCH (11:37)
[2016-07-09] MEDS: POTASSIUM CHL 20 Meq TABLET PO SCH ×2 (11:37→21:34)
[2016-07-09] MEDS: MECLIZINE HCL 25 MG TAB PO SCH (11:39)
[2016-07-09] MEDS: FUROSEMIDE 40 MG TAB PO SCH ×2 (11:39→21:39)
[2016-07-09] MEDS: CITALOPRAM HYDROBR 20 MG TAB PO SCH (11:40)
[2016-07-09] MEDS: PREGABALIN CAPSULE 75 MG CAP PO SCH ×2 (11:40→21:41)
[2016-07-09 15:59] LABS: Basophils # (auto) 0.2 uL; DEFINITIVE VIEW TRANSMISSION; Eosinophils # (auto) 0.3 uL; Hematocrit 43.7 % (36.0-46.0); Hemoglobin 13.3 g/dL (12.2-16.2); Lymphocytes # (auto) 1.7 uL; Lymphocytes % (auto) 26.4 % (10.0-50.0); Mean Corpuscular Hemoglobin 26.2 pg (28.0-32.0); Mean Corpuscular Hgb Conc. 30.4 g/dL (32.0-36.0); Mean Corpuscular Volume 86.3 fL (80.0-100.0); Mean Platelet Volume 8.1 fL (7.4-10.4); Monocytes # (auto) 0.5 uL; Monocytes % (auto) 8.5 % (0.0-12.0); Neutrophils # (auto) 3.6 uL; Platelet Count (auto) 300 10^3/uL (140-450); Red Cell Distribution Width 12.3 % (11.6-16.0); White Blood Cell 6.4 10^3/uL (4.4-10.8)
[2016-07-09 16:03] LABS: Basophils % (auto) 0.4 % (0.0-2.0); Neutrophils % (auto) 59.7 % (37.0-80.0)
[2016-07-09 16:39] LABS: BUN/Creatinine Ratio 15.6; Calcium 8.7 mg/dL (8.5-10.1); Potassium 3.7 mmol/L (3.5-5.1)
[2016-07-09 18:26] LABS: Bilirubin, Total 0.2 mg/dL (0.2-1.0); Magnesium 1.9 mg/dL (1.6-2.6); Total Protein 6.7 g/dL (6.4-8.2)
[2016-07-09] MEDS: BUDESONIDE (INHALATION) 0.5 MG/2 ML NEB NEB PRN (19:19)
[2016-07-09] MEDS: ATORVASTATIN 20 MG TAB PO SCH (21:39)
[2016-07-09] MEDS: traZODone HCL 50 MG TAB PO SCH (21:41)
[2016-07-10] MEDS: ALBUTEROL SULF 2.5 MG/0.5ML(0.5%) NEB SOLN NEB SCH ×3 (00:30→13:26)
[2016-07-10] MEDS: PROMETHAZINE HCL 25 MG/ML 1ML IV PRN (03:00)
[2016-07-10 05:00] VITALS: BP 131/77
[2016-07-10] MEDS: BACLOFEN 10 MG TAB PO SCH ×2 (05:55→13:47)
[2016-07-10] MEDS: ALPRAZolam 0.5 MG TAB PO SCH ×2 (05:55→13:48)
[2016-07-10] MEDS: HYDROcodone-ACET 10/325MG TAB PO SCH ×2 (05:55→12:09)
[2016-07-10] MEDS: InsuLIN REG 1unit/0.01ml Soln (100units/ml) SC SCH ×2 (06:47→11:04)
[2016-07-10] MEDS: ACCU-CHEK COMFORT CURVE STRIP VI SCH ×2 (06:47→11:04)
[2016-07-10 09:02] VITALS: BP 141/63
[2016-07-10] MEDS: HYDROcodone-ACET 5/325MG TAB PO PRN (09:13)
[2016-07-10] MEDS: ATENOLOL 50 MG TAB PO SCH (09:14)
[2016-07-10] MEDS: PREGABALIN CAPSULE 75 MG CAP PO SCH (09:14)
[2016-07-10] MEDS: COLCHICINE 0.6 MG CAP PO SCH (09:14)
[2016-07-10] MEDS: CITALOPRAM HYDROBR 20 MG TAB PO SCH (09:14)
[2016-07-10] MEDS: CLOPIDOGREL BISULFATE 75 MG TAB PO SCH (09:14)
[2016-07-10] MEDS: MECLIZINE HCL 25 MG TAB PO SCH (09:14)
[2016-07-10] MEDS: POTASSIUM CHL 20 Meq TABLET PO SCH (09:14)
[2016-07-10] MEDS: FUROSEMIDE 40 MG TAB PO SCH (09:15)
[2016-07-10] MEDS: ENOXAPARIN SOD 40 MG/0.4 ML SYRINGE SC SCH (09:17)
[2016-07-10] MEDS ORDERED: ONDANSETRON HCL 4 MG/2 ML VIAL IV PRN (11:15)
[2016-07-10] MEDS: INSULIN DETEMIR(LEVEMIR) 1unit/0.01ml Soln (100units/ml) SC SCH (12:07)
[2016-07-10 13:07] VITALS: BP 127/47
[2016-07-10 17:00] VITALS: BP 162/87
== END 2016-07-10 17:33 | DRG 861 ==
LOC: EDBD 09:07 → ER 09:12 → TELE 09:13 → TELE-CENTR 20:14 → CENTRAL 07-05 04:13
PROVIDERS: ADMIT Internal Medicine; ATTEND Internal Medicine
DX: R53.1 Weakness (principal); I13.0 Hypertensive heart and chronic kidney disease with heart failure and stage 1 through stage 4 chronic kidney disease, or unspecified chronic kidney disease; E11.21 Type 2 diabetes mellitus with diabetic nephropathy; I50.9 Heart failure, unspecified; E11.42 Type 2 diabetes mellitus with diabetic polyneuropathy; J44.9 Chronic obstructive pulmonary disease, unspecified; E78.5 Hyperlipidemia, unspecified; F41.9 Anxiety disorder, unspecified; E66.01 Morbid (severe) obesity due to excess calories; G47.33 Obstructive sleep apnea (adult) (pediatric); E11.65 Type 2 diabetes mellitus with hyperglycemia; N18.2 Chronic kidney disease, stage 2 (mild); R56.9 Unspecified convulsions; S70.02XA Contusion of left hip, initial encounter; E11.22 Type 2 diabetes mellitus with diabetic chronic kidney disease; G89.4 Chronic pain syndrome; W18.30XA Fall on same level, unspecified, initial encounter; Z82.49 Family history of ischemic heart disease and other diseases of the circulatory system; Z83.3 Family history of diabetes mellitus; Z82.5 Family history of asthma and other chronic lower respiratory diseases; Z88.0 Allergy status to penicillin; I25.2 Old myocardial infarction; Z90.49 Acquired absence of other specified parts of digestive tract; Z98.890 Other specified postprocedural states; Z80.9 Family history of malignant neoplasm, unspecified; Z87.891 Personal history of nicotine dependence; Z86.73 Personal history of transient ischemic attack (TIA), and cerebral infarction without residual deficits; Z83.2 Family history of diseases of the blood and blood-forming organs and certain disorders involving the immune mechanism; Z88.1 Allergy status to other antibiotic agents; Z88.5 Allergy status to narcotic agent; Z88.2 Allergy status to sulfonamides; Z91.018 Allergy to other foods; Z87.440 Personal history of urinary (tract) infections; Z68.1 Body mass index [BMI] 19.9 or less, adult
CPT/HCPCS: 36415; 70450; 71010; 73502; 80048; 80053; 80320; 81001; 82247; 82550; 82607; 82746; 82962; 83036; 83735; 84075; 84155; 84450; 84460; 84484; 85025; 85610; 85652; 85730; 87081; 93005; 93886; 94640; 94660; 94761; 95819; 96372; 96374; 96375; 97001; G0434; J1815; J1885; J2405

== ENCOUNTER 2017-10-07 10:51 | Inpatient (IN) | payer MEDICAID ==
[~2017-10-07] VITALS: Ht 170.2 cm; Wt 205.3 kg
[~2017-10-07 10:51] MED LIST changes: +CLOP75TA28 PO; -COLC1CAP PO; +GLYB5TAB8 PO; -HYDR-2651 PO; +HYDR25TA35 PO; -INSUINJ; +NAPR-223 PO
[2017-10-07 11:56] LABS: Alanine Aminotransferase 205 U/L (13-56); Albumin 2.9 g/dL (3.4-5.0); Alkaline Phosphatase 127 U/L (45-117); Anion Gap 8 (5-15); Aspartate Aminotransferase 87 U/L (15-37); BUN/Creatinine Ratio 10.9; Bilirubin, Total 0.3 mg/dL (0.2-1.0); Blood Urea Nitrogen 10 mg/dL (7-18); Calcium 8.6 mg/dL (8.5-10.1); Carbon Dioxide 29 mmol/L (21-32); Chloride 100 mmol/L (98-107); GFR African American 82 mL/min; GFR Non-African American 68 mL/min; Potassium 4.5 mmol/L (3.5-5.1); Sodium 137 mmol/L (136-145); Total Protein 6.8 g/dL (6.4-8.2)
[2017-10-07 11:58] LABS: Glucose 414 mg/dL (74-106)
[2017-10-07 12:00] LABS: Basophils # (auto) 0.1 uL; Eosinophils # (auto) 0.2 uL; Eosinophils % (auto) 2.1 % (0.0-7.0); Hematocrit 41.9 % (36.0-46.0); Hemoglobin 12.9 g/dL (12.2-16.2); Lymphocytes # (auto) 1.3 uL; Lymphocytes % (auto) 13.1 % (10.0-50.0); Mean Corpuscular Hemoglobin 26.9 pg (28.0-32.0); Mean Corpuscular Hgb Conc. 30.8 g/dL (32.0-36.0); Mean Corpuscular Volume 87.3 fL (80.0-100.0); Monocytes # (auto) 0.6 uL; Monocytes % (auto) 6.3 % (0.0-12.0); Neutrophils # (auto) 7.6 uL; Neutrophils % (auto) 77.5 % (37.0-80.0); Nucleated Red Blood Cells % 0.1 %; Platelet Count (auto) 283 10^3/uL (140-450); Red Cell Distribution Width 14.6 % (11.8-14.3); White Blood Cell 9.9 10^3/uL (4.4-10.8)
[2017-10-07 12:03] LABS: Partial Thromboplastin Time 23.8 sec (23.78-33.04); Prothrombin Time 10.7 sec (9.27-12.13)
[2017-10-07] MEDS ORDERED: MEPERIDINE HCL (25 MG/ML) 1ML VIAL IV ONE (12:15)
[2017-10-07] MEDS ORDERED: ONDANSETRON HCL 4 MG/2 ML VIAL IV ONE (12:15)
[2017-10-07] MEDS ORDERED: ALBUTEROL SULF 2.5 MG/0.5ML(0.5%) NEB SOLN NEB PRN (12:45)
[2017-10-07] MEDS ORDERED: BECLOMETHASONE DIPROPIONATE 80 MCG IN PRN (12:45)
[2017-10-07] MEDS ORDERED: DEXTROSE (50%) 50ML SYRG IV PRN ×2 (12:45→17:30)
[2017-10-07] MEDS ORDERED: traMADol HCL 50 MG TAB PO PRN (12:45)
[2017-10-07] MEDS ORDERED: LACTULOSE 20Gm/30ML SOLN PO PRN (12:45)
[2017-10-07] MEDS ORDERED: ENOXAPARIN SOD 40 MG/0.4 ML SYRINGE SC SCH (12:55)
[2017-10-07] MEDS ORDERED: ASPirin 81 mg TAB PO ONE (13:00)
[2017-10-07] MEDS ORDERED: CLOPIDOGREL BISULFATE 75 MG TAB PO ONE (13:00)
[2017-10-07] MEDS ORDERED: traZODone HCL 50 MG TAB PO SCH (13:15)
[2017-10-07] MEDS ORDERED: ALPRAZolam 0.5 MG TAB PO SCH (14:00)
[2017-10-07] MEDS ORDERED: ISOSORBIDE DINITRATE 10 MG TAB PO SCH (14:00)
[2017-10-07] MEDS: ISOSORBIDE DINITRATE 10 MG TAB PO SCH ×2 (14:36→19:24)
[2017-10-07] MEDS: CLINDAMYCIN HCL 150 MG CAP PO SCH ×2 (14:37→23:12)
[2017-10-07] MEDS: BACLOFEN 10 MG TAB PO SCH ×2 (14:37→23:12)
[2017-10-07] MEDS: ATENOLOL 25 MG TAB PO SCH ×2 (14:37→23:13)
[2017-10-07] MEDS: PREGABALIN 25 MG CAP PO SCH ×2 (15:00→20:27)
[2017-10-07] MEDS: PREGABALIN CAPSULE 75 MG CAP PO SCH ×2 (15:00→20:27)
[2017-10-07 15:30] LABS: CRP High Sensitivity 4.93 mg/dL (< 0.3)
[2017-10-07] MEDS ORDERED: InsuLIN REG 1unit/0.01ml Soln (100units/ml) SC SCH (16:00)
[2017-10-07] MEDS ORDERED: ACCU-CHEK COMFORT CURVE STRIP VI SCH (16:00)
[2017-10-07] MEDS: ALBUTEROL SULF 2.5 MG/0.5ML(0.5%) NEB SOLN NEB SCH (18:10)
[2017-10-07] MEDS: ACCU-CHEK COMFORT CURVE STRIP VI SCH (18:38)
[2017-10-07] MEDS: InsuLIN REG 1unit/0.01ml Soln (100units/ml) SC SCH (18:38)
[2017-10-07] MEDS: FUROSEMIDE 40 MG TAB PO SCH (19:24)
[2017-10-07] MEDS: glyBURIDE 5 MG TAB PO SCH (19:24)
[2017-10-07] MEDS: POTASSIUM CHL 20 Meq TABLET PO SCH (19:24)
[2017-10-07] MEDS: HYDROmorphone HCL 2 MG/ML VL IV PRN (20:27)
[2017-10-07] MEDS: PROMETHAZINE HCL 25 MG/ML 1ML IV PRN (20:27)
[2017-10-07 21:23] VITALS: BP 138/79
[2017-10-07 21:45] VITALS: BP 146/80
[2017-10-07 22:00] VITALS: BP 146/80
[2017-10-07] MEDS: INSULIN LANTUS (GLARGINE) 1 /0.01ml (100units/ml) SC SCH (23:13)
[2017-10-08] MEDS: ALBUTEROL SULF 2.5 MG/0.5ML(0.5%) NEB SOLN NEB SCH ×4 (00:07→18:22)
[2017-10-08] MEDS: ACCU-CHEK COMFORT CURVE STRIP VI SCH ×7 (00:20→23:58)
[2017-10-08] MEDS: InsuLIN REG 1unit/0.01ml Soln (100units/ml) SC SCH ×7 (00:22→23:58)
[2017-10-08] MEDS: PROMETHAZINE HCL 25 MG/ML 1ML IV PRN ×5 (02:02→22:38)
[2017-10-08] MEDS: HYDROmorphone HCL 2 MG/ML VL IV PRN ×5 (02:02→22:38)
[2017-10-08] MEDS ORDERED: SODIUM CHLORIDE 0.9% 250 ML IV ONE (02:45)
[2017-10-08 05:00] VITALS: BP 113/76
[2017-10-08 05:24] VITALS: BP 146/80
[2017-10-08] MEDS: CLINDAMYCIN HCL 150 MG CAP PO SCH ×3 (06:42→22:13)
[2017-10-08] MEDS: BACLOFEN 10 MG TAB PO SCH ×3 (06:42→22:13)
[2017-10-08] MEDS: FUROSEMIDE 40 MG TAB PO SCH ×2 (06:43→18:00)
[2017-10-08] MEDS: ISOSORBIDE DINITRATE 10 MG TAB PO SCH ×3 (06:43→18:02)
[2017-10-08] MEDS: POTASSIUM CHL 20 Meq TABLET PO SCH ×2 (06:43→18:00)
[2017-10-08 06:47] LABS: Albumin 2.9 g/dL (3.4-5.0); BUN/Creatinine Ratio 13.8; Bilirubin, Total 0.3 mg/dL (0.2-1.0); Potassium 4.4 mmol/L (3.5-5.1); Total Protein 6.6 g/dL (6.4-8.2)
[2017-10-08] MEDS ORDERED: OPTISON 3ml Vial for INJ IV ONE (08:45)
[2017-10-08] MEDS: glyBURIDE 5 MG TAB PO SCH ×2 (08:50→18:02)
[2017-10-08 09:00] VITALS: BP 127/78
[2017-10-08] MEDS: ASPirin 81 mg TAB PO SCH (10:10)
[2017-10-08] MEDS: PREGABALIN CAPSULE 75 MG CAP PO SCH ×3 (10:10→19:51)
[2017-10-08] MEDS: ATENOLOL 25 MG TAB PO SCH ×2 (10:10→22:15)
[2017-10-08] MEDS: PREGABALIN 25 MG CAP PO SCH ×3 (10:10→19:50)
[2017-10-08] MEDS: CLOPIDOGREL BISULFATE 75 MG TAB PO SCH (10:11)
[2017-10-08] MEDS: ENOXAPARIN SOD 40 MG/0.4 ML SYRINGE SC SCH ×2 (10:11→22:16)
[2017-10-08] MEDS: INSULIN LANTUS (GLARGINE) 1 /0.01ml (100units/ml) SC SCH ×2 (10:11→22:00)
[2017-10-08] MEDS ORDERED: DEXTROSE (50%) 50ML SYRG IV PRN (11:15)
[2017-10-08 13:00] VITALS: BP 131/79
[2017-10-08 17:00] VITALS: BP 132/81
[2017-10-08 20:00] VITALS: BP 143/82
[2017-10-09] MEDS: ALBUTEROL SULF 2.5 MG/0.5ML(0.5%) NEB SOLN NEB SCH ×5 (00:02→21:47)
[2017-10-09] MEDS: HYDROmorphone HCL 2 MG/ML VL IV PRN ×4 (03:52→17:14)
[2017-10-09] MEDS: PROMETHAZINE HCL 25 MG/ML 1ML IV PRN ×5 (03:52→22:09)
[2017-10-09] MEDS: ACCU-CHEK COMFORT CURVE STRIP VI SCH ×6 (04:03→23:48)
[2017-10-09] MEDS: InsuLIN REG 1unit/0.01ml Soln (100units/ml) SC SCH ×6 (04:04→23:48)
[2017-10-09 05:00] VITALS: BP 128/77
[2017-10-09] MEDS: FUROSEMIDE 40 MG TAB PO SCH (06:11)
[2017-10-09] MEDS: BACLOFEN 10 MG TAB PO SCH ×3 (06:11→22:05)
[2017-10-09] MEDS: ISOSORBIDE DINITRATE 10 MG TAB PO SCH ×3 (06:12→18:00)
[2017-10-09] MEDS: CLINDAMYCIN HCL 150 MG CAP PO SCH ×3 (06:12→22:05)
[2017-10-09] MEDS: POTASSIUM CHL 20 Meq TABLET PO SCH ×2 (06:12→17:26)
[2017-10-09 08:00] VITALS: BP_SYST 132; BP_SYST 143; BP_DIAS 67; BP_DIAS 82
[2017-10-09] MEDS: glyBURIDE 5 MG TAB PO SCH ×2 (08:08→17:26)
[2017-10-09] MEDS: ASPirin 81 mg TAB PO SCH (09:29)
[2017-10-09] MEDS: PREGABALIN 25 MG CAP PO SCH ×3 (09:29→20:11)
[2017-10-09] MEDS: ENOXAPARIN SOD 40 MG/0.4 ML SYRINGE SC SCH ×2 (09:30→22:06)
[2017-10-09] MEDS: PREGABALIN CAPSULE 75 MG CAP PO SCH ×3 (09:30→20:13)
[2017-10-09] MEDS: ATENOLOL 25 MG TAB PO SCH ×2 (09:30→22:09)
[2017-10-09] MEDS: CLOPIDOGREL BISULFATE 75 MG TAB PO SCH (09:30)
[2017-10-09] MEDS: INSULIN LANTUS (GLARGINE) 1 /0.01ml (100units/ml) SC SCH ×2 (09:31→22:07)
[2017-10-09] MEDS ORDERED: FUROSEMIDE 40 MG/4 ML VIAL IV ONE (10:45)
[2017-10-09 12:11] LABS: BUN/Creatinine Ratio 13.4; Calcium 8.9 mg/dL (8.5-10.1); Potassium 4.1 mmol/L (3.5-5.1)
[2017-10-09] MEDS: FUROSEMIDE 100 MG/10ML VIAL IV SCH ×2 (12:46→21:01)
[2017-10-09 13:00] VITALS: BP 126/69
[2017-10-09 14:02] VITALS: BP 126/72
[2017-10-09 17:18] VITALS: BP 139/68
[2017-10-09 22:00] VITALS: BP 109/77
[2017-10-10] MEDS: ALBUTEROL SULF 2.5 MG/0.5ML(0.5%) NEB SOLN NEB SCH ×3 (02:06→09:40)
[2017-10-10] MEDS: HYDROmorphone HCL 2 MG/ML VL IV PRN ×3 (03:42→12:20)
[2017-10-10] MEDS: PROMETHAZINE HCL 25 MG/ML 1ML IV PRN ×3 (03:42→12:25)
[2017-10-10] MEDS: InsuLIN REG 1unit/0.01ml Soln (100units/ml) SC SCH ×4 (03:43→16:35)
[2017-10-10] MEDS: ACCU-CHEK COMFORT CURVE STRIP VI SCH ×4 (03:43→16:36)
[2017-10-10 05:00] VITALS: BP 136/76
[2017-10-10] MEDS: FUROSEMIDE 100 MG/10ML VIAL IV SCH ×2 (05:41→18:00)
[2017-10-10] MEDS: CLINDAMYCIN HCL 150 MG CAP PO SCH ×2 (05:41→14:57)
[2017-10-10] MEDS: POTASSIUM CHL 20 Meq TABLET PO SCH ×2 (05:42→18:00)
[2017-10-10] MEDS: ISOSORBIDE DINITRATE 10 MG TAB PO SCH ×3 (05:42→18:00)
[2017-10-10] MEDS: BACLOFEN 10 MG TAB PO SCH ×2 (05:42→14:56)
[2017-10-10 08:00] VITALS: BP 141/79
[2017-10-10] MEDS: glyBURIDE 5 MG TAB PO SCH ×2 (08:16→18:00)
[2017-10-10 09:18] VITALS: BP 141/79
[2017-10-10] MEDS: PREGABALIN 25 MG CAP PO SCH ×2 (10:28→14:56)
[2017-10-10] MEDS: ASPirin 81 mg TAB PO SCH (10:28)
[2017-10-10] MEDS: CLOPIDOGREL BISULFATE 75 MG TAB PO SCH (10:28)
[2017-10-10] MEDS: PREGABALIN CAPSULE 75 MG CAP PO SCH ×2 (10:29→14:59)
[2017-10-10] MEDS: INSULIN LANTUS (GLARGINE) 1 /0.01ml (100units/ml) SC SCH (10:30)
[2017-10-10] MEDS: ATENOLOL 25 MG TAB PO SCH (10:30)
[2017-10-10] MEDS: ENOXAPARIN SOD 40 MG/0.4 ML SYRINGE SC SCH (10:31)
[2017-10-10 10:36] LABS: BUN/Creatinine Ratio 13.8; Calcium 9.1 mg/dL (8.5-10.1)
[2017-10-10 14:05] VITALS: BP 123/66
[2017-10-10 17:08] VITALS: BP 145/75
== END 2017-10-10 19:05 | disposition home or self-care (01) | DRG 420 ==
LOC: EDBD 10:51 → ER 10:51 → EDUNIT# 10:51 → TELE 10:52 → TELE-CENTR 21:41
PROVIDERS: ADMIT Internal Medicine; ATTEND Internal Medicine
DX: E10.65 Type 1 diabetes mellitus with hyperglycemia (principal); I50.43 Acute on chronic combined systolic (congestive) and diastolic (congestive) heart failure; J96.10 Chronic respiratory failure, unspecified whether with hypoxia or hypercapnia; E44.0 Moderate protein-calorie malnutrition; I25.110 Atherosclerotic heart disease of native coronary artery with unstable angina pectoris; I11.0 Hypertensive heart disease with heart failure; E66.2 Morbid (severe) obesity with alveolar hypoventilation; J44.9 Chronic obstructive pulmonary disease, unspecified; Z86.73 Personal history of transient ischemic attack (TIA), and cerebral infarction without residual deficits; Z87.891 Personal history of nicotine dependence; Z86.711 Personal history of pulmonary embolism; Z82.5 Family history of asthma and other chronic lower respiratory diseases; Z82.49 Family history of ischemic heart disease and other diseases of the circulatory system; Z83.3 Family history of diabetes mellitus; Z79.4 Long term (current) use of insulin; L02.412 Cutaneous abscess of left axilla; Z90.49 Acquired absence of other specified parts of digestive tract; Z88.1 Allergy status to other antibiotic agents; Z88.0 Allergy status to penicillin; Z88.2 Allergy status to sulfonamides; Z68.45 Body mass index [BMI] 70 or greater, adult
CPT/HCPCS: 36415; 71045; 71046; 76705; 80048; 80053; 80061; 82150; 82550; 82962; 83036; 83690; 83880; 84443; 84484; 85025; 85379; 85610; 85652; 85730; 86141; 87070; 87205; 93005; 93306; 94640; 96361; 96374; 96375; J1815; J2405; Q9956

== ENCOUNTER 2018-03-29 08:16 | Emergency (ER) | payer MEDICAID ==
[~2018-03-29] VITALS: Ht 172.7 cm; Wt 171.5 kg
[~2018-03-29 08:16] MED LIST changes: +HYDR-4296 PO; -HYDR25TA35 PO
[2018-03-29] MEDS ORDERED: FUROSEMIDE 40 MG/4 ML VIAL IV ONE (08:30)
[2018-03-29] MEDS ORDERED: methylPREDNISolone SOD SUCC 125 MG/2 ML VL IV ONE (08:30)
[2018-03-29] MEDS ORDERED: LORazepam 2MG/ML-1ML VIAL IV ONE (08:30)
[2018-03-29] MEDS ORDERED: ALBUTEROL SULF 2.5 MG/0.5ML(0.5%) NEB SOLN NEB ONE (08:30)
[2018-03-29 09:53] LABS: Alanine Aminotransferase 37 U/L (13-56); Albumin 2.9 g/dL (3.4-5.0); Anion Gap 7 (5-15); Aspartate Aminotransferase 20 U/L (15-37); BUN/Creatinine Ratio 19.3; Blood Urea Nitrogen 16 mg/dL (7-18); Calcium 8.8 mg/dL (8.5-10.1); Carbon Dioxide 36 mmol/L (21-32); Chloride 96 mmol/L (98-107); GFR African American 92 mL/min; GFR Non-African American 76 mL/min; Glucose 226 mg/dL (74-106); INR 0.92 (0.9-1.15); Partial Thromboplastin Time 25.1 sec (23.78-33.04); Potassium 4.6 mmol/L (3.5-5.1); Prothrombin Time 9.9 sec (9.27-12.13); Sodium 139 mmol/L (136-145)
[2018-03-29 09:58] LABS: Alkaline Phosphatase 116 U/L (45-117); Bilirubin, Total 0.2 mg/dL (0.2-1.0); Total Protein 6.8 g/dL (6.4-8.2)
[2018-03-29 10:09] LABS: Hemoglobin 13.1 g/dL (12.2-16.2); Mean Corpuscular Hgb Conc. 30.9 g/dL (32.0-36.0); Monocytes # (auto) 0.7 uL; Neutrophils # (auto) 4.9 uL
[2018-03-29 10:11] LABS: Basophils # (auto) 0.1 uL; Basophils % (auto) 0.7 % (0.0-2.0); Eosinophils # (auto) 0.3 uL; Hematocrit 42.5 % (36.0-46.0); Lymphocytes # (auto) 1.5 uL; Lymphocytes % (auto) 20.1 % (10.0-50.0); Mean Corpuscular Hemoglobin 26.7 pg (28.0-32.0); Mean Corpuscular Volume 86.5 fL (80.0-100.0); Monocytes % (auto) 9.6 % (0.0-12.0); Neutrophils % (auto) 65.6 % (37.0-80.0); Nucleated Red Blood Cells % 0.2 %; Platelet Count (auto) 296 10^3/uL (140-450); Red Blood Cells 4.91 10^6/uL (4.0-5.20); Red Cell Distribution Width 13.2 % (11.8-14.3); White Blood Cell 7.4 10^3/uL (4.4-10.8)
[2018-03-29 10:28] LABS: Urine Bacteria NONE SEEN /hpf (None Seen); Urine Blood 2+ /uL (Negative); Urine Specific Gravity 1.008 (1.001-1.035); Urine WBC 29 /hpf (0 - 5)
[2018-03-29 11:12] VITALS: BP 163/90
== END 2018-03-29 12:00 | disposition home or self-care (01) ==
LOC: EDBD 08:16 → ER 08:16
DX: I11.0 Hypertensive heart disease with heart failure (principal); I50.33 Acute on chronic diastolic (congestive) heart failure; J44.9 Chronic obstructive pulmonary disease, unspecified; I25.10 Atherosclerotic heart disease of native coronary artery without angina pectoris; E11.9 Type 2 diabetes mellitus without complications; E78.5 Hyperlipidemia, unspecified; Z86.73 Personal history of transient ischemic attack (TIA), and cerebral infarction without residual deficits; Z90.49 Acquired absence of other specified parts of digestive tract; Z87.891 Personal history of nicotine dependence
CPT/HCPCS: 36415; 71045; 80053; 81001; 82962; 83880; 84484; 85025; 85610; 85730; 94640; 96374; 96375; 99285; J1940; J2060; J2930; J7611; 99291

== ENCOUNTER 2018-06-06 14:27 | Inpatient (IN) | payer MEDICAID ==
[~2018-06-06] VITALS: Ht 172.7 cm; Wt 184.7 kg
[2018-06-06] MEDS ORDERED: HYDROmorphone HCL 2 MG/ML VL IV ONE (17:15)
[2018-06-06] MEDS ORDERED: ONDANSETRON HCL 4 MG/2 ML VIAL IV ONE (17:15)
[2018-06-06 17:49] LABS: Basophils # (auto) 0 uL; Basophils % (auto) 0.6 % (0.0-2.0); Eosinophils # (auto) 0.1 uL; Eosinophils % (auto) 1.7 % (0.0-7.0); Hematocrit 44.9 % (36.0-46.0); Hemoglobin 14.4 g/dL (12.2-16.2); Lymphocytes # (auto) 1.3 uL; Lymphocytes % (auto) 14.6 % (10.0-50.0); Mean Corpuscular Hemoglobin 27.3 pg (28.0-32.0); Mean Corpuscular Hgb Conc. 32.1 g/dL (32.0-36.0); Mean Corpuscular Volume 85.2 fL (80.0-100.0); Monocytes # (auto) 0.6 uL; Monocytes % (auto) 6.8 % (0.0-12.0); Neutrophils # (auto) 6.6 uL; Neutrophils % (auto) 76.3 % (37.0-80.0); Nucleated Red Blood Cells % 0.1 %; Platelet Count (auto) 298 10^3/uL (140-450); Red Blood Cells 5.26 10^6/uL (4.0-5.20); Red Cell Distribution Width 14.1 % (11.8-14.3); White Blood Cell 8.6 10^3/uL (4.4-10.8)
[2018-06-06 17:58] LABS: INR 0.94 (0.9-1.15); Partial Thromboplastin Time 20.6 sec (23.78-33.04); Prothrombin Time 10.1 sec (9.27-12.13)
[2018-06-06 18:04] LABS: Alanine Aminotransferase 28 U/L (13-56); Albumin 3.2 g/dL (3.4-5.0); Anion Gap 7 (5-15); Blood Urea Nitrogen 15 mg/dL (7-18); Calcium 8.6 mg/dL (8.5-10.1); Carbon Dioxide 29 mmol/L (21-32); Chloride 99 mmol/L (98-107); Glucose 335 mg/dL (74-106); Potassium 4.1 mmol/L (3.5-5.1); Sodium 135 mmol/L (136-145)
[2018-06-06 18:07] LABS: Alkaline Phosphatase 102 U/L (45-117); Aspartate Aminotransferase 14 U/L (15-37); Bilirubin, Total 0.4 mg/dL (0.2-1.0); GFR African American > 60 mL/min; GFR Non-African American > 60 mL/min
[2018-06-06] MEDS ORDERED: TEMAZEPAM 15 MG CAP PO PRN (18:30)
[2018-06-06] MEDS ORDERED: ALBUTEROL SULF 2.5 MG/0.5ML(0.5%) NEB SOLN NEB PRN (18:30)
[2018-06-06] MEDS ORDERED: DEXTROSE (50%) 50ML SYRG IV PRN ×2 (18:30)
[2018-06-06] MEDS ORDERED: ACETAMINOPHEN 500 MG TAB PO PRN (18:30)
[2018-06-06] MEDS ORDERED: LACTULOSE 20Gm/30ML SOLN PO PRN (18:30)
[2018-06-06] MEDS ORDERED: NITROGLYCERIN 0.4 MG SL TAB SL PRN (18:30)
[2018-06-06 18:51] LABS: BUN/Creatinine Ratio 15.8
--- NOTE | 2018-06-06 19:50 | NUR ---
Telemetry admit from ER JOSELINE PETERSON admitted to Telemetry unit after SBAR received. Patient oriented to Catalina Sexton, primary RN, unit, room, bed, and unit policies regarding patient care and visiting hours. Patient now on continuous telemetry monitoring, tele box # [17] and telemetry reading on arrival to unit is [ST 109]. Patient placed on bedside oxygen, weighed by bedscale and encouraged to call if they need something. All questions and concerns addressed, patient verbalized understanding. Note: []
--- NOTE | 2018-06-06 20:05 | NUR ---
HOSPITALIST Called/paged ANIL HURD called re:PATIENT REQUESTED TO HAVE ORTIZ CATH, AND THERE IS NO DIET ORDER FOR PATIENT. Waiting for call back. Continue care.
[2018-06-06] MEDS: ACCU-CHEK COMFORT CURVE STRIP VI SCH (20:08)
[2018-06-06] MEDS: InsuLIN REG 1unit/0.01ml Soln (100units/ml) SC SCH (20:15)
--- NOTE | 2018-06-06 20:15 | NUR ---
ACCU-CHECK, BS 337. INSULIN GIVEN ORDERED. CONTINUE TO MONITOR.
--- NOTE | 2018-06-06 20:26 | NUR ---
HOSPITALIST Called/paged AGAIN ANIL HURD called re:PATIENT'S DIET ORDER, AND PATIENT REQUESTED TO HAVE ORTIZ CATH SINCE SHE COULD NOT MOVE AFTER RIGHT KNEE FX. Waiting for call back. Continue care.
--- NOTE | 2018-06-06 20:45 | NUR ---
RECEIVED CALL FROM MD COTTO. ORDERS RECEIVED FOR ORTIZ CATH. CONTINUE CARE.
--- NOTE | 2018-06-06 21:45 | NUR ---
MD COTTO AT BEDSIDE, IMMOBILIZER SUPPORT APPLIED BY . CONTINUE CARE.
[2018-06-06 22:00] VITALS: BP 115/85
--- NOTE | 2018-06-06 22:20 | NUR ---
Patel catheter insertion Patient assessed and determined to be in need of patel catheter. Order obtained from [YADIEL] . Patient educated on catheter and reason for insertion. All questions answered. Patel catheter [16] guage [place] inserted with clean sterile technique. Patient tolerated well.
[2018-06-06] MEDS: HYDROmorphone HCL 2 MG/ML VL IV PRN (22:57)
--- NOTE | 2018-06-06 23:00 | NUR ---
PATIENT C/O PAIN @ 02/27. MEDICATED PATIENT ORDERED. CONTINUE TO MONITOR.
--- NOTE | 2018-06-06 23:47 | NUR ---
WOUND PICTURE DONE. WOUND CONSULT INITIATED. CONTINUE TO MONITOR.
[2018-06-07] MEDS: ACCU-CHEK COMFORT CURVE STRIP VI SCH ×6 (00:14→20:00)
[2018-06-07] MEDS: LORazepam 0.5 MG TAB PO PRN ×3 (00:14→21:02)
[2018-06-07] MEDS: InsuLIN REG 1unit/0.01ml Soln (100units/ml) SC SCH ×6 (00:14→21:01)
--- NOTE | 2018-06-07 00:15 | NUR ---
ACCU-CHECK, BS 311. INSULIN GIVEN ORDERED. CONTINUE TO MONITOR.
[2018-06-07] MEDS: ALBUTEROL SULF 2.5 MG/0.5ML(0.5%) NEB SOLN NEB SCH ×5 (01:24→23:50)
[2018-06-07] MEDS: IPRATROPIUM BROM 0.5 MG/2.5ML INH SOL NEB SCH ×5 (01:24→23:50)
[2018-06-07 01:38] VITALS: BP 115/85
[2018-06-07] MEDS: HYDROmorphone HCL 2 MG/ML VL IV PRN ×5 (03:00→20:41)
--- NOTE | 2018-06-07 03:07 | NUR ---
PATIENT MORNING FOR PAIN @ 10. MEDICATED PATIENT ORDERED. CONTINUE TO MONITOR.
--- NOTE | 2018-06-07 04:27 | NUR ---
ACCU-CHECK, BS 319. INSULIN GIVEN ORDERED. CONTINUE TO MONITOR.
[2018-06-07 05:00] VITALS: BP 128/69
[2018-06-07] MEDS: PROMETHAZINE HCL 25 MG/ML 1ML IV PRN (06:04)
--- NOTE | 2018-06-07 07:20 | NUR ---
Opening Note Pt resting in bed with eyes closed. No distress noted. BEd locked, in low pos.,rails up x2, call antonio iin reach.
[2018-06-07 09:00] VITALS: BP 129/64
[2018-06-07] MEDS: PANTOPRAZOLE 40 MG TAB PO SCH (09:18)
[2018-06-07 13:00] VITALS: BP 130/58
--- NOTE | 2018-06-07 13:40 | NUR ---
WOUND CARE NOTE: Wound care in to see patient per wound care request regarding "Left and right breast healing wound" that are noted present on admission. Bedside nurse took photographs of patient's wounds upon admission for reference. Patient is 52 years old female with admitting diagnosis of R Knee Fracture. She has history of CHF, COPD, DM. Patient is resting in bed in Rm. 288A. She's awake,alert and oriented. She's in no stated pain at this time however mild pain noted upon turning. She's able to assist in turning side to side. her current Anderson score is 16. She has Rt. leg brace on. Noted patient's L breast (2.8x3cm and 2.5x1.2cm) and R breast ((3x3.2cm) has open full thickness wounds with no measurable depth. Patient states she obtained wounds from EKG leads few months ago. She added that wounds will close and reopens. Cleansed wounds with wound cleanser, patted dry with sterile gauze, applied Thera honey gel and covered with Opti foam gentle dressing. Scabbed abrasion also noted to her L knee, area is clean and dry, left open to air. Sacral and back has clean, dry, intact skin,no pressure injury related issue noted. Repositioned patient for comfort, tolerated well. RECOMMENDATION: EOD/PRN Dressing change to bilateral breast wounds per MD order, Dietary consult, redistribute pressure points with pillows, continue monitoring by wound care while patient is hospitalized. Addendum: 06/07/18 at 1821 by Juanita David RN Amended: Links added.
--- NOTE | 2018-06-07 14:35 | NUR ---
ORDER AND CLINICALS FAXED TO [facility] AND BEDSIDE COMMODE.
--- NOTE | 2018-06-07 16:38 | NUR ---
assessment Per consult hospital bed and bedside commode. order [facility] to [facility] [id number] and [facility] [employer] is getting auth from [employer]. Waiting on ETA now. Addendum: 06/07/18 at 1640 by Brigida Steen Amended: Links added.
[2018-06-07 17:02] VITALS: BP 141/102
[2018-06-07] MEDS: traMADol HCL 50 MG TAB PO PRN (19:07)
[2018-06-07 22:00] VITALS: BP 145/82
--- NOTE | 2018-06-07 22:00 | NUR ---
New IV started to Right upper arm, 20 gauge. Tolerated well. IV discontinued to left upper arm due pain and redness at the site. Area around IV insertion is hard to the touch. Will monitor closely.
--- NOTE | 2018-06-07 23:10 | NUR ---
Spoke with Hospitalist Shari García. No new orders for pain medication at this time.
[2018-06-08] MEDS: HYDROmorphone HCL 2 MG/ML VL IV PRN ×3 (00:10→08:58)
[2018-06-08] MEDS: InsuLIN REG 1unit/0.01ml Soln (100units/ml) SC SCH ×6 (04:14→21:38)
[2018-06-08] MEDS: ACCU-CHEK COMFORT CURVE STRIP VI SCH ×6 (04:14→21:38)
--- NOTE | 2018-06-08 04:45 | NUR ---
Assumed care of patient from Katina RN. Patient is awake, alert and oriented x4. No signs or symptoms of distress noted at this time. Patient states right knee pain. Will continue to monitor Q1 hour and PRN.
[2018-06-08] MEDS: LORazepam 0.5 MG TAB PO PRN ×2 (04:52→16:33)
[2018-06-08 04:55] VITALS: BP 133/64
[2018-06-08] MEDS: IPRATROPIUM BROM 0.5 MG/2.5ML INH SOL NEB SCH ×3 (06:58→19:24)
[2018-06-08] MEDS: ALBUTEROL SULF 2.5 MG/0.5ML(0.5%) NEB SOLN NEB SCH ×3 (06:58→19:24)
--- NOTE | 2018-06-08 07:00 | NUR ---
MD VISIT Yesterday Dr. Cortes spoke to the patient and said there was no need for immediate knee surgery and that she will most likely need knee surgery in the future due to her weight. Patient verbalized understanding. Next, Dr. Cortes spoke with Dr. Galarza who were both here in person.
--- NOTE | 2018-06-08 07:05 | NUR ---
Closing Note Report given to day shift RN. Patient is awake, alert and oriented x4, sitting up in bed. No signs or symptoms of distress noted at this time.
--- NOTE | 2018-06-08 07:38 | NUR ---
Shift report Shift report received from night RN Summer. Pt resting in bed with eyes open, talking. Bed in low pos., locked, rails up x 2, call light in reach. Continue to monitor closely.
[2018-06-08 08:22] VITALS: BP 143/79
[2018-06-08] MEDS: PANTOPRAZOLE 40 MG TAB PO SCH (09:15)
[2018-06-08] MEDS: traMADol HCL 50 MG TAB PO PRN (11:59)
[2018-06-08 12:27] VITALS: BP 118/70
[2018-06-08] MEDS ORDERED: KETOROLAC TROMETH 30 MG/ML 1ML VIAL IV PRN ×2 (12:45→13:00)
[2018-06-08] MEDS ORDERED: MORPHINE SULFATE 10 MG/ML INJ 1ML SDV IV PRN (13:15)
--- NOTE | 2018-06-08 14:26 | NUR ---
PAIN PT STILL IN PAIN OUT OF CONTROL. AFTER TALKING TO DR PALM IN THE LAST HOUR, PT IS VERY UNHAPPY WITH HER NEW PAIN REGIMEN: DISCONTINUATION OF DILAUDID AND ONLY TORADOL FOR PAIN. REFUSED THE TORADOL
--- NOTE | 2018-06-08 14:45 | NUR ---
DME CALLED MARIELLA AT [phone] TO LET HER KNOW PATIENT WAS NOT FERMÍN TO A HLOC, PER DR. ZHANG AND THAT THE PATIENT WILL NEED ALL THE DME ORDERS ORDERED BY DR PALM.
[2018-06-08] MEDS: KETOROLAC TROMETH 30 MG/ML 1ML VIAL IV PRN (16:30)
[2018-06-08 16:53] VITALS: BP 149/87
--- NOTE | 2018-06-08 19:30 | NUR ---
SHIFT report Shift report given to night RN Mandi. Pt resting in bed, bed locked, and in low pos., rails up x2, call light in reach.
--- NOTE | 2018-06-08 19:50 | NUR ---
Opening Shift Note Pt is resting in bed with resp rate even and unlabored. Pt is very upset stating that she wants to speak with someone about getting her pain medication order changed, wants to be transferred to a different hospital, and wants a different doctor. Vida Thomas RN notified of pt request and will speak with pt. Bed is low, wheels are locked, and call light is with in reach. Bed larm is set for safety.
--- NOTE | 2018-06-08 20:50 | NUR ---
Hospitalist paged for c/o pain.
[2018-06-08] MEDS ORDERED: HYDROcodone-ACET 10/325MG TAB PO ONE (21:00)
--- NOTE | 2018-06-08 21:00 | NUR ---
Shari García RN POST PARTUM returned page, status report given and new orders received to give [place] 10/325mg PO once now and then [place] 5/325mg PO Q4hr prn for pain.
[2018-06-08 21:33] VITALS: BP 128/93
[2018-06-08] MEDS: INSULIN LANTUS (GLARGINE) 1 /0.01ml (100units/ml) SC SCH (21:39)
[2018-06-09] MEDS: ALBUTEROL SULF 2.5 MG/0.5ML(0.5%) NEB SOLN NEB SCH ×5 (00:09→23:34)
[2018-06-09] MEDS: IPRATROPIUM BROM 0.5 MG/2.5ML INH SOL NEB SCH ×5 (00:09→23:34)
--- NOTE | 2018-06-09 00:15 | NUR ---
Pt c/o n/v and assessed IV site for nausea meds and IV was dislodged. Will attempt to start new IV.
--- NOTE | 2018-06-09 01:10 | NUR ---
Several attempt to start new IV and smelter charger was able to get IV 24g in right FA. Pt morelia well.
[2018-06-09] MEDS: InsuLIN REG 1unit/0.01ml Soln (100units/ml) SC SCH ×6 (01:28→20:07)
[2018-06-09] MEDS: ACCU-CHEK COMFORT CURVE STRIP VI SCH ×6 (01:28→20:07)
[2018-06-09] MEDS: PROMETHAZINE HCL 25 MG/ML 1ML IV PRN (01:31)
--- NOTE | 2018-06-09 01:31 | NUR ---
Pt still with c/o nausea but no emesis at this time. Phenergan 12.5 mg IVP given per orders now. Pt then asked if she can have a snack. Pt FSBS is 359 now and DM teaching done and also teaching on n/v. Will continue to monitor pt q 1 hr . Bed is low, wheels are locked, and call light is with in reach.
--- NOTE | 2018-06-09 02:26 | NUR ---
Pt sitting up in bed, appears to be very anxious and is very loud, talkative, and verbal even with no one in the room. Whenever rounding on pt she is asking for lots of snacks and food. Pt encouraged to rest and let her abd rest for a bit as she has had 2 episodes of vomiting tonight, she has a consistent carb diet ordered, and blood sugars have been in the upper 300's. Pt verbalizes understanding but needs reinforcement.
[2018-06-09] MEDS: KETOROLAC TROMETH 30 MG/ML 1ML VIAL IV PRN ×3 (03:00→15:56)
[2018-06-09] MEDS: LORazepam 0.5 MG TAB PO PRN ×3 (03:00→15:57)
--- NOTE | 2018-06-09 03:00 | NUR ---
Judith-care given and antifungal cream applied to right groin area. Pt c/o itching and irritation. Right groin skin is pink and cleaned and dried well before applying cream. Pt morelia well and states that , " Where you are applying the cream is exactly where it's irritated and that feels better." Offered to put draw sheet and chucks under pt and pt refused stating that , " It gets all bunched up under me when I move around."
[2018-06-09] MEDS: HYDROcodone-ACET 5/325MG TAB PO PRN ×3 (03:01→10:47)
[2018-06-09 05:00] VITALS: BP 111/71
--- NOTE | 2018-06-09 05:44 | NUR ---
OFFERED LINEN CHANGE TO PATIENT TWICE. PATIENT STATED EACH TIME " NO BABY I'M OKAY. I'M COMFORTABLE RIGHT NOW . I DON'T WANT TO MOVE." PUT LINEN AT BEDSIDE AND TOLD PATIENT TO JUST CALL ME WHEN SHE IS READY. RN MADE AWARE.
--- NOTE | 2018-06-09 07:00 | NUR ---
Opening Shift Note Assumed care of patient, awake and alert. No S/S of distress/SOB. Pain reported 01/28. Informed the patient of their pain management options. Instructed on POC and to call for assist PRN, will continue to monitor for changes Q1hr and PRN.
[2018-06-09 08:00] VITALS: BP 124/69
[2018-06-09 08:47] VITALS: BP 124/69
--- NOTE | 2018-06-09 09:00 | NUR ---
Spoke with family member. I updated them about the plan of care and what we are waiting for, after the password was provided. The family member Paula requested that her number be given to the doctor rounding on her today. I wrote down the number and told her that i would pass it on and tell the rounding doctor to give her a call.
[2018-06-09] MEDS: INSULIN LANTUS (GLARGINE) 1 /0.01ml (100units/ml) SC SCH ×2 (10:46→22:26)
[2018-06-09] MEDS: PANTOPRAZOLE 40 MG TAB PO SCH (10:46)
--- NOTE | 2018-06-09 12:30 | NUR ---
informed Dr. Galarza that the patient's family wants to speak with him. I told him that the phone number he needs to call is in the chart.
--- NOTE | 2018-06-09 12:48 | NUR ---
NUTRITION CONSULT/ASSESSMENT NOTES Please refer to link notes of nutrition screen form filed under the intervention section of the plan of care for further details. Est. Needs based on AdBW (96 kg): 1900 kcal to 2400 kcal (20-25 kcal/kgAdBW), 96 gms to 115 gms pro (1.0-1.2 gms/kgAdBW). Will continue to monitor pertinent labs and reassess nutrient needs prn Thank you for this consult. Addendum: 06/09/18 at [address] Amended: Links added.
[2018-06-09 12:50] VITALS: BP 114/68
[2018-06-09] MEDS ORDERED: HYDROcodone-ACET 10/325MG TAB PO PRN (13:00)
--- NOTE | 2018-06-09 14:00 | NUR ---
Spoke with house car shifter concerning the patient's family. I was told that if the patient wants to file a complaint she can contact Marylou Sue at extension [phone]. this is the risk management person and is the right contact for complaints, not the house car shifter.
[2018-06-09] MEDS: HYDROcodone-ACET 10/325MG TAB PO PRN ×2 (15:57→22:28)
--- NOTE | 2018-06-09 16:31 | NUR ---
IV removal IV DC'd with clean sterile technique, catheter fully intact. Pressure dressing applied to site. Patient tolerated well. NOTE: IV INFILTRATED.
[2018-06-09 16:38] VITALS: BP 131/96
--- NOTE | 2018-06-09 17:30 | NUR ---
IV ATTEMPTED BUT NOT SUCCESSFUL. USED THE VEIN FINDER MACHINE, BUT COULD NOT FIND A GOOD VEIN. NOTIFIED THE CHARGE NURSE DEBI, WHO ADVISED A MIDLINE PLACEMENT. SPOKE TO THE PICC LINE NURSE JESSICA TO PLACE A MIDLINE FOR THIS PATIENT, BUT SHE WAS FINISHING UP HER LAST LINE PLACEMENT AND ADVISED ME TO FIND OUT IF SOMEONE FROM THE ER COULD COME UP TO PLACE THE IV.
--- NOTE | 2018-06-09 19:30 | NUR ---
Opening shift note Patient in bed sleeping with eyes closed. Easily arousable to verbal stimuli. Respiration even and unlabored, denies pain and discomfort at this time. Plan of care discussed, patient verbalized understanding. All needs attended, will continue to monitor.
[2018-06-09 22:00] VITALS: BP 124/60
--- NOTE | 2018-06-10 | NUR ---
Started new IV to right wrist 24 gauge x 1 attempt with good blood return. Patient tolerated procedure well. Will continue to monitor.
[2018-06-10] MEDS: KETOROLAC TROMETH 30 MG/ML 1ML VIAL IV PRN ×4 (00:05→21:33)
[2018-06-10] MEDS: ACCU-CHEK COMFORT CURVE STRIP VI SCH ×6 (00:20→20:00)
[2018-06-10] MEDS: InsuLIN REG 1unit/0.01ml Soln (100units/ml) SC SCH ×6 (00:21→20:00)
[2018-06-10 01:11] VITALS: BP 124/60
[2018-06-10] MEDS: LORazepam 0.5 MG TAB PO PRN ×2 (01:17→16:54)
[2018-06-10] MEDS: HYDROcodone-ACET 10/325MG TAB PO PRN ×2 (04:16→14:39)
[2018-06-10 04:39] VITALS: BP 137/76
[2018-06-10] MEDS: IPRATROPIUM BROM 0.5 MG/2.5ML INH SOL NEB SCH ×2 (06:26→20:26)
[2018-06-10] MEDS: ALBUTEROL SULF 2.5 MG/0.5ML(0.5%) NEB SOLN NEB SCH ×2 (06:26→20:26)
[2018-06-10] MEDS: PANTOPRAZOLE 40 MG TAB PO SCH (09:25)
[2018-06-10] MEDS: INSULIN LANTUS (GLARGINE) 1 /0.01ml (100units/ml) SC SCH ×2 (09:28→23:00)
--- NOTE | 2018-06-10 10:59 | NUR ---
SPOKE WITH DR. PALM AT [facility], MADE AWARE PT IS REQUESTING IF SHE CAN HAVE HER HOME MEDICATIONS AND PHYSICAL THERAPY. PER DR. PALM HE WILL TAKE CARE OF IT.
--- NOTE | 2018-06-10 11:37 | NUR ---
LEFT A MESSAGE TO TRAVIS HOROWITZ REGARDING DR. PALM'S COMMUNICATION ORDER FOR OVERSIZED WALKER. DME ORDER FOR WALKER PLACED.
--- NOTE | 2018-06-10 12:09 | NUR ---
Midline Placement to right basilic. 20g/10cm in length. Flushes easily, blood return obtained from single port.Tolerated well. Primary RN notified. Lot#[id number].
--- NOTE | 2018-06-10 14:10 | NUR ---
PT SEEN BY DR. PALM HE SAID HE WILL CALL PT'S PCP DR. BURCH REGARDING PLAN FOR ORTHOPEDIC INTERVENTION.
--- NOTE | 2018-06-10 14:45 | NUR ---
PAIN PT COMPLAINING OF RIGHT LEG PAIN AND GENERALIZED PAIN 10/10, PT CLAIMED THAT HER PAIN MEDICATION IS NOT WORKING. DR. PALM AT [facility] MADE AWARE, NO FURTHER ORDER.
--- NOTE | 2018-06-10 15:49 | NUR ---
CALLED [facility] BUT NO ANSWER, VOICE MAIL IS FULL CAN'T LEAVE A MESSAGE, PAGED THRU PBX TO CALL BACK REGARDING BOX OFFICE ATTENDANT CONSULT FOR BED, COMMODE, WALKER, WHEELCHAIR, TRANSPORTATION BACK HOME. WAITING FOR CALL BACK.
--- NOTE | 2018-06-10 16:10 | NUR ---
SPOKE WITH AIDEE TOP EDGE BEVELER AT [facility], SHE IS AWARE OF THE AUTOMOTIVE PARTS CLERK CONSULT AND WILL TALK TO THE PT.
--- NOTE | 2018-06-10 16:15 | NUR ---
AIDEE SPOKE TO THE PT AND FAMILY.
--- NOTE | 2018-06-10 16:20 | NUR ---
SISTER DEBRA WAS REQUESTING TO TALK TO THE CHARGE NURSE. DEBI CHARGE NURSE MADE AWARE, [facility] THE PT AND FAMILY. MADE AWARE SISTER WAS UPSET SHE SAID HER SISTER WAS DISCRIMINATED AND DID NOT RECEIVED THE PROPER CARE.
--- NOTE | 2018-06-10 16:40 | NUR ---
TRANSPORTATION PER TRAVIS SHE WILL ARRANGE THE TRANSPORTATION AND EXPECT ETA WITHIN 2 HRS.
--- NOTE | 2018-06-10 16:55 | NUR ---
AIDEE CALLED SHE SAID PT CAN GO HOME BED, COMMODE WERE DELIVERED IN THE HOUSE AND WHEELCHAIR WILL BE DELIVERED.
[2018-06-10 17:07] VITALS: BP 116/81
--- NOTE | 2018-06-10 17:45 | NUR ---
PT REFUSED TO REMOVE HER ORTIZ CATHETER. DR. PALM NOTIFIED, PER DR. PALM HE WILL NOT TAKE CHARGE OF IT. SENIOR COMPENSATION CONSULTANT SAID TO HAVE PT SIGN REFUSAL TO REMOVE ORTIZ CATHETER.
--- NOTE | 2018-06-10 18:00 | NUR ---
discharged wound photo taken.
--- NOTE | 2018-06-10 18:00 | NUR ---
PT EDUCATED ABOUT THE CARE OF ORTIZ CATHETER. PT STATED SHE HAD CATHETER FOR 30 DAYS BEFORE AND SHE KNOWS HOW TO TAKE CARE OF THE ORTIZ CATHETER. PT MADE AWARE OF THE RISK FOR UTI AND VERBALIZED SHE IS AWARE OF IT AND WILL STILL KEEP THE ORTIZ.
--- NOTE | 2018-06-10 19:22 | NUR ---
care endorsed to JESSICA Miller Pt waiting for the transportation, still for removal of midline.
--- NOTE | 2018-06-10 19:30 | NUR ---
Received endorsement from AM shift, patient for discharge today. Per RN am shift, Brigida/ [facility] has arranged discharge and instruction given to am shift RN to "make sure patient is ready before [facility] transportation arrives anytime" patient in bed alert and oriented x 4, verbally coherent, able to make needs known. Patient's respiration even and unlabored, complained of moderate pain to right leg. Assisted patient in repositioning right leg. Awaiting transportation at this time.
--- NOTE | 2018-06-10 21:00 | NUR ---
Called [facility] office for follow up with transportation's ETA, however, unable, office closed. Charge nurse and cd manufacturing supervisor made aware.
--- NOTE | 2018-06-10 21:15 | NUR ---
Spoke with patient and was able to provide RN with [facility] transportation direct number (providing transpo services for [facility] patients) [phone]. Spoke with dispatcher and verified patient has no transportation arranged for today, 06/10/18. Charge nurse made aware.
--- NOTE | 2018-06-10 21:25 | NUR ---
Called [facility]/ [facility] transpo 2nd time and spoke with Shari/ dispatcher, confirmed patient has no arranged transportation for today.
[2018-06-10] MEDS: PROMETHAZINE HCL 25 MG/ML 1ML IV PRN (21:33)
--- NOTE | 2018-06-10 21:50 | NUR ---
Paged [facility] regarding patient will not be able to be discharged today d/t transportation not arranged. Awaiting call back. Patient complaining of pain to right knee/ leg, Toradol medication given. Charge nurse made aware.
[2018-06-10 22:00] VITALS: BP 142/103
--- NOTE | 2018-06-10 23:30 | NUR ---
Patient upset, asking for a strong pain medication, stated she wants Dilaudid instead of Toradol or [place]. Informed patient GAMBLING SUPERVISOR already paged and awaiting call back.
--- NOTE | 2018-06-10 23:38 | NUR ---
Family member, Yogesh, asking for update on patient's status. Update given after password provided. Family upset asking why her pain medication was not changed for 5 days that patient was admitted as it was not effective with patient's pain. Informed Yogesh that she was supposed to be discharged today and already paged the TELESALES ADVISOR as soon as we found out transportation was not arranged, still awaiting call back.
[2018-06-11] MEDS: HYDROcodone-ACET 10/325MG TAB PO PRN ×4 (00:34→13:12)
--- NOTE | 2018-06-11 00:34 | NUR ---
Received call back from ANIL García with new order for [place] 10/325 1 tab po Q4H prn and discontinue [place] 10/325 1 tab po Q6H PRN. VOICE INTERCEPT TECHNICIAN aware and informed of patient's discharge delay d/t transportation not arranged. Per VOICE INTERCEPT TECHNICIAN to continue with the POC. All orders read back, noted and carried out. Will endorse to am shift RN to follow up transportation with [employer] in the am. Will continue to monitor.
[2018-06-11] MEDS: InsuLIN REG 1unit/0.01ml Soln (100units/ml) SC SCH ×3 (01:23→08:50)
[2018-06-11] MEDS: ACCU-CHEK COMFORT CURVE STRIP VI SCH ×3 (01:23→08:00)
[2018-06-11 05:00] VITALS: BP 145/84
[2018-06-11] MEDS: IPRATROPIUM BROM 0.5 MG/2.5ML INH SOL NEB SCH ×2 (06:21→11:42)
[2018-06-11] MEDS: ALBUTEROL SULF 2.5 MG/0.5ML(0.5%) NEB SOLN NEB SCH ×2 (06:21→11:42)
--- NOTE | 2018-06-11 08:04 | NUR ---
o/c note 06-08-[address] Galarza paged me stating pt needed an extra wide fww. I caled Thuy at [facility] and she gave me auth for hospital bed, bariatric bsc and extra wide walker of # [id number]. [facility] and informed them of request. I called [facility] twice but no one ever got back to me. in the mean time 1330 hrs from 1120 hrs till now, I have been trying to talk with Taylor primary RN for pt , I was able to speak to her at this time, but she told me to call her back since she was trying to transfer a pt. I called back at 1430 hrs and Taylor stated pt to be transferred to [facility]. I sked if there was an order. I asked her to verify if pt to go home or H[facility]. She stated on the phone would call back. I informed Taylor I would not pursue DME until she knows exactly what the order is going to be
[2018-06-11 09:28] VITALS: BP 138/81
[2018-06-11] MEDS: PANTOPRAZOLE 40 MG TAB PO SCH (09:59)
[2018-06-11] MEDS: INSULIN LANTUS (GLARGINE) 1 /0.01ml (100units/ml) SC SCH (09:59)
--- NOTE | 2018-06-11 12:45 | NUR ---
Received call from [facility]. Transport home scheduled between 14:00 and 15:00.
[2018-06-11 12:49] VITALS: BP 147/85
--- NOTE | 2018-06-11 16:40 | NUR ---
Spoke withgustavo hurd at [facility] [phone] and informed her that the patient has not yet been picked up. Rep states the transport has been set up with [facility] [facility]: [phone].
--- NOTE | 2018-06-11 16:49 | NUR ---
Spoke with rep at [facility] - [phone]. He states the transport is active but he does not have a armored car guard and driver at this time. He states the patient will be picked up when he can get a armored car guard and driver.
--- NOTE | 2018-06-11 16:53 | NUR ---
Received call from Pebbles at [facility]. She was updated that patient has not yet been picked up. Pebbles states she will try to get another transport provider to take the patient home.
[2018-06-11 17:07] VITALS: BP 130/89
--- NOTE | 2018-06-11 17:36 | NUR ---
Transport at bedside. Unable to transport patient on the gurney they have due to patient's weight. They will come back with another gurney in about 40 minutes.
--- NOTE | 2018-06-11 19:21 | NUR ---
Discharge instructions given as ordered. Encourage to follow up with PMD as instructed. All questions and concerns addressed. Patient verbalized understanding. IV removed previously by JESSICA Venutra with catheter intact, per RN report. Telemetry unit returned to [facility] already per report. Patient taken to vehicle via [facility] with all personal belongings, accompanied by staff and family member. No distress noted at time of departure. Patient still has [place] catheter which she refused to have removed upon discharge.
== END 2018-06-11 19:28 | disposition home or self-care (01) | DRG 342 ==
LOC: EDBD 14:27 → ER 14:31 → TELE 18:32 → TELE-WESTW 19:50
PROVIDERS: ADMIT Internal Medicine; ATTEND Internal Medicine
DX: S82.141A Displaced bicondylar fracture of right tibia, initial encounter for closed fracture (principal); J96.11 Chronic respiratory failure with hypoxia; E11.22 Type 2 diabetes mellitus with diabetic chronic kidney disease; E11.65 Type 2 diabetes mellitus with hyperglycemia; I13.0 Hypertensive heart and chronic kidney disease with heart failure and stage 1 through stage 4 chronic kidney disease, or unspecified chronic kidney disease; I50.32 Chronic diastolic (congestive) heart failure; J44.9 Chronic obstructive pulmonary disease, unspecified; I25.10 Atherosclerotic heart disease of native coronary artery without angina pectoris; F41.9 Anxiety disorder, unspecified; M25.461 Effusion, right knee; E66.01 Morbid (severe) obesity due to excess calories; Z86.73 Personal history of transient ischemic attack (TIA), and cerebral infarction without residual deficits; W01.0XXA Fall on same level from slipping, tripping and stumbling without subsequent striking against object, initial encounter; S82.491A Other fracture of shaft of right fibula, initial encounter for closed fracture; Y93.01 Activity, walking, marching and hiking; E78.5 Hyperlipidemia, unspecified; N18.2 Chronic kidney disease, stage 2 (mild); Z82.49 Family history of ischemic heart disease and other diseases of the circulatory system; Z82.5 Family history of asthma and other chronic lower respiratory diseases; Z83.3 Family history of diabetes mellitus; Z87.891 Personal history of nicotine dependence; Z68.44 Body mass index [BMI] 60.0-69.9, adult; Y92.098 Other place in other non-institutional residence as the place of occurrence of the external cause; Y99.8 Other external cause status; Z88.1 Allergy status to other antibiotic agents; Z88.3 Allergy status to other anti-infective agents; Z88.5 Allergy status to narcotic agent; Z88.0 Allergy status to penicillin; Z88.2 Allergy status to sulfonamides; Z79.899 Other long term (current) drug therapy; Z79.82 Long term (current) use of aspirin; Z90.49 Acquired absence of other specified parts of digestive tract; Z80.9 Family history of malignant neoplasm, unspecified; Z99.81 Dependence on supplemental oxygen; Z79.84 Long term (current) use of oral hypoglycemic drugs
CPT/HCPCS: 36415; 73562; 73610; 80053; 82962; 83036; 85025; 85610; 85730; 94640; 94761; 96374; 96375; A6257; G0378; J1815; J1885; J2405

== ENCOUNTER 2022-01-04 17:49 | Inpatient (IN) | payer MEDICARE, MEDICAID ==
[~2022-01-04] VITALS: Ht 172.7 cm; Wt 197.3 kg
[~2022-01-04 17:49] MED LIST changes: +ASPI-543 PO; -ASPI81TA27 PO; +FURO1TAB32 PO; -FURO80TA PO; -INSLANTI SC; +MECL12.514 PO; -MECL12.554 PO; -TRAZ100T2 PO; +TRAZ100T3 PO
[2022-01-04] MEDS ORDERED: IPRATROPIUM BROM 0.5 MG/2.5ML INH SOL NEB ONE (19:00)
[2022-01-04] MEDS ORDERED: ALBUTEROL SULF 2.5 MG/0.5ML(0.5%) NEB SOLN NEB ONE (19:00)
[2022-01-04] MEDS ORDERED: methylPREDNISolone SOD SUCC 125 MG/2 ML VL IV ONE (19:00)
[2022-01-04] MEDS ORDERED: ASPirin 325 MG TAB PO ONE (19:00)
[2022-01-04] MEDS ORDERED: ACETAMINOPHEN 325 MG TAB PO ONE (19:00)
[2022-01-04 19:38] LABS: BUN/Creatinine Ratio 12.2; Potassium 4.2 mmol/L (3.5-5.1)
[2022-01-04 19:41] LABS: Bilirubin, Total 0.3 mg/dL (0.2-1.0); Total Protein 6.8 g/dL (6.4-8.2)
[2022-01-04] MEDS ORDERED: levoFLOXacin 750MG 150 ML IV ONE (20:00)
[2022-01-04 20:33] LABS: Basophils # (auto) 0 10 ^3/uL (0-0.2); Basophils % (auto) 0.3 % (0.0-2.0); Eosinophils # (auto) 0 10 ^3/uL (0-0.8); Hemoglobin 12.9 g/dL (12.2-16.2); Lymphocytes # (auto) 0.4 10 ^3/uL (0.4-5.4); Monocytes # (auto) 0.5 10 ^3/uL (0-1.3); Neutrophils # (auto) 12.8 10 ^3/uL (1.6-8.6)
[2022-01-04 20:35] LABS: Eosinophils % (auto) 0.4 % (0.0-7.0); Hematocrit 42.1 % (36.0-46.0); Lymphocytes % (auto) 2.9 % (10.0-50.0); Mean Corpuscular Hemoglobin 25.3 pg (28.0-32.0); Mean Corpuscular Hgb Conc. 30.6 g/dL (32.0-36.0); Mean Corpuscular Volume 82.8 fL (80.0-100.0); Monocytes % (auto) 3.8 % (0.0-12.0); Neutrophils % (auto) 92.6 % (37.0-80.0); Red Blood Cells 5.08 10^6/uL (4.0-5.20); Red Cell Distribution Width 14.2 % (11.8-14.3); White Blood Cell 13.8 10^3/uL (4.4-10.8)
[2022-01-04 20:50] LABS: INR 0.99 (0.9-1.15); Partial Thromboplastin Time 23.8 sec (24.6-33.4)
[2022-01-04 20:55] LABS: Lactic Acid w/Reflex 3.2 mmol/L (0.4-2.0)
[2022-01-04] MEDS ORDERED: MORPHINE SULFATE INJ 2 MG/ml SYRG IV PRN (21:45)
[2022-01-04] MEDS ORDERED: TEMAZEPAM 15 MG CAP PO PRN (21:45)
[2022-01-04] MEDS ORDERED: ACETAMINOPHEN 325 MG TAB PO PRN (21:45)
[2022-01-04] MEDS ORDERED: DEXTROSE (50%) 50ML SYRG IV PRN (21:45)
[2022-01-04] MEDS ORDERED: NITROGLYCERIN 0.4 MG SL TAB SL PRN (21:45)
[2022-01-04] MEDS ORDERED: IOHEXOL 350 MG/ML 100ML IJ ONE (21:59)
[2022-01-04 22:02] VITALS: BP 93/52
[2022-01-04] MEDS: ACCU-CHEK COMFORT CURVE STRIP VI SCH (22:50)
[2022-01-04] MEDS: InsuLIN REG 1unit/0.01ml Soln (100units/ml) SC SCH (22:51)
[2022-01-04] MEDS: ATORVASTATIN 20 MG TAB PO SCH (22:56)
[2022-01-04] MEDS: ATENOLOL 50 MG TAB PO SCH (22:57)
[2022-01-04] MEDS: HYDROcodone-ACET 5/325MG TAB PO PRN (22:58)
[2022-01-04] MEDS: ONDANSETRON HCL 4 MG/2 ML VIAL IV PRN (23:01)
[2022-01-05] VITALS (12 sets, daily range): BP systolic 103–153; BP diastolic 55–88
[2022-01-05] MEDS: HYDROcodone-ACET 7.5/325MG TAB PO PRN ×2 (04:02→09:58)
[2022-01-05] MEDS: ONDANSETRON HCL 4 MG/2 ML VIAL IV PRN ×4 (04:03→21:32)
[2022-01-05] MEDS ORDERED: FUROSEMIDE 40 MG TAB PO SCH (06:00)
[2022-01-05] MEDS: ACCU-CHEK COMFORT CURVE STRIP VI SCH ×4 (06:30→22:44)
[2022-01-05] MEDS: InsuLIN REG 1unit/0.01ml Soln (100units/ml) SC SCH ×4 (06:49→22:54)
[2022-01-05 07:41] LABS: Albumin 2.8 g/dL (3.4-5.0); Calcium 8.8 mg/dL (8.5-10.1)
[2022-01-05 07:44] LABS: Bilirubin, Total 0.4 mg/dL (0.2-1.0)
[2022-01-05 07:57] LABS: Basophils # (auto) 0 10 ^3/uL (0-0.2); Eosinophils # (auto) 0 10 ^3/uL (0-0.8); Hematocrit 41.6 % (36.0-46.0); Hemoglobin 12.9 g/dL (12.2-16.2); Lymphocytes # (auto) 0.7 10 ^3/uL (0.4-5.4); Mean Corpuscular Hemoglobin 26.2 pg (28.0-32.0); Mean Corpuscular Volume 84.4 fL (80.0-100.0); Monocytes # (auto) 0.7 10 ^3/uL (0-1.3); Monocytes % (auto) 3.2 % (0.0-12.0); Neutrophils # (auto) 20.8 10 ^3/uL (1.6-8.6); Neutrophils % (auto) 93.8 % (37.0-80.0); Red Blood Cells 4.93 10^6/uL (4.0-5.20); Red Cell Distribution Width 14.5 % (11.8-14.3); White Blood Cell 22.2 10^3/uL (4.4-10.8)
[2022-01-05 09:41] LABS: Urine Bacteria FEW /hpf (None Seen); Urine Blood 1+ /uL (Negative); Urine Mucus FEW (None Seen); Urine Specific Gravity 1.019 (1.001-1.035); Urine WBC 5 /hpf (0 - 5)
[2022-01-05] MEDS: ENOXAPARIN SOD 40 MG/0.4 ML SYRINGE SC SCH (09:56)
[2022-01-05] MEDS: PANTOPRAZOLE 40 MG TAB PO SCH (09:57)
[2022-01-05] MEDS: CLOPIDOGREL BISULFATE 75 MG TAB PO SCH (09:57)
[2022-01-05] MEDS: ASPirin 81 mg TAB PO SCH (09:57)
[2022-01-05] MEDS: levoFLOXacin 750MG 150 ML IV SCH (09:58)
[2022-01-05] MEDS: ATENOLOL 50 MG TAB PO SCH ×2 (10:07→22:24)
[2022-01-05] MEDS ORDERED: methylPREDNISolone SOD SUCC 40 MG/ML VL IV ONE (11:45)
[2022-01-05] MEDS: HYDROmorphone HCL 2 MG/ML VL/or syr IV PRN ×3 (12:08→21:31)
[2022-01-05] MEDS: FUROSEMIDE 40 MG/4 ML VIAL IV SCH (17:57)
[2022-01-05] MEDS: ATORVASTATIN 20 MG TAB PO SCH (22:23)
[2022-01-05] MEDS: methylPREDNISolone SOD SUCC 40 MG/ML VL IV SCH (22:23)
[2022-01-05] MEDS: ALBUTEROL SULF 2.5 MG/0.5ML(0.5%) NEB SOLN NEB PRN (22:57)
[2022-01-06] MEDS: ONDANSETRON HCL 4 MG/2 ML VIAL IV PRN ×4 (02:38→21:37)
[2022-01-06] MEDS: HYDROmorphone HCL 2 MG/ML VL/or syr IV PRN ×4 (02:40→21:21)
[2022-01-06 05:00] VITALS: BP 127/71
[2022-01-06] MEDS: FUROSEMIDE 40 MG/4 ML VIAL IV SCH ×2 (06:43→18:24)
[2022-01-06] MEDS: ACCU-CHEK COMFORT CURVE STRIP VI SCH ×4 (06:44→22:00)
[2022-01-06] MEDS: InsuLIN REG 1unit/0.01ml Soln (100units/ml) SC SCH ×4 (06:45→21:36)
[2022-01-06] MEDS: ALBUTEROL SULF 2.5 MG/0.5ML(0.5%) NEB SOLN NEB PRN ×2 (08:01→18:32)
[2022-01-06] MEDS: IPRATROPIUM BROM 0.5 MG/2.5ML INH SOL NEB PRN ×2 (08:01→18:32)
[2022-01-06 08:59] VITALS: BP 121/51
[2022-01-06] MEDS: methylPREDNISolone SOD SUCC 40 MG/ML VL IV SCH ×2 (09:25→21:37)
[2022-01-06] MEDS: PANTOPRAZOLE 40 MG TAB PO SCH (09:28)
[2022-01-06] MEDS: ASPirin 81 mg TAB PO SCH (09:28)
[2022-01-06] MEDS: ENOXAPARIN SOD 40 MG/0.4 ML SYRINGE SC SCH (09:28)
[2022-01-06] MEDS: RIVAROXABAN 10 MG TAB PO SCH (09:28)
[2022-01-06] MEDS: ATENOLOL 50 MG TAB PO SCH ×2 (09:29→21:38)
[2022-01-06] MEDS: CLOPIDOGREL BISULFATE 75 MG TAB PO SCH (09:29)
[2022-01-06] MEDS: levoFLOXacin 750MG 150 ML IV SCH (09:30)
[2022-01-06] MEDS ORDERED: LEVO750T8 PO (10:24)
[2022-01-06] MEDS ORDERED: PRED20TA2 PO (10:24)
[2022-01-06] MEDS ORDERED: RIVA10TA2 PO (10:24)
[2022-01-06 10:53] LABS: Basophils # (auto) 0.2 10 ^3/uL (0-0.2); Basophils % (auto) 0.9 % (0.0-2.0); Mean Corpuscular Hemoglobin 25.6 pg (28.0-32.0); Monocytes # (auto) 1.1 10 ^3/uL (0-1.3); Monocytes % (auto) 5.2 % (0.0-12.0); Neutrophils # (auto) 18.8 10 ^3/uL (1.6-8.6)
[2022-01-06 10:55] LABS: Eosinophils # (auto) 0.1 10 ^3/uL (0-0.8); Eosinophils % (auto) 0.3 % (0.0-7.0); Hematocrit 37.1 % (36.0-46.0); Hemoglobin 11.4 g/dL (12.2-16.2); Lymphocytes # (auto) 0.8 10 ^3/uL (0.4-5.4); Lymphocytes % (auto) 3.7 % (10.0-50.0); Mean Corpuscular Hgb Conc. 30.9 g/dL (32.0-36.0); Mean Corpuscular Volume 82.9 fL (80.0-100.0); Neutrophils % (auto) 89.9 % (37.0-80.0); Red Blood Cells 4.48 10^6/uL (4.0-5.20); Red Cell Distribution Width 14.5 % (11.8-14.3); White Blood Cell 20.9 10^3/uL (4.4-10.8)
[2022-01-06 11:03] LABS: Calcium 8.9 mg/dL (8.5-10.1); Potassium 4.3 mmol/L (3.5-5.1)
[2022-01-06 11:05] LABS: BUN/Creatinine Ratio 21.6
[2022-01-06 13:00] VITALS: BP 115/54
[2022-01-06] MEDS ORDERED: DEXTROSE (50%) 50ML SYRG IV PRN (16:30)
[2022-01-06 17:00] VITALS: BP 122/52
[2022-01-06] MEDS: INSULIN LANTUS (GLARGINE) 1 /0.01ml (100units/ml) SC SCH (18:30)
[2022-01-06] MEDS: ATORVASTATIN 20 MG TAB PO SCH (21:38)
[2022-01-06 22:48] VITALS: BP 139/84
[2022-01-07] MEDS: HYDROcodone-ACET 5/325MG TAB PO PRN (02:15)
[2022-01-07] MEDS: HYDROmorphone HCL 2 MG/ML VL/or syr IV PRN ×4 (04:16→20:29)
[2022-01-07 04:34] VITALS: BP 119/71
[2022-01-07] MEDS: FUROSEMIDE 40 MG/4 ML VIAL IV SCH ×2 (05:40→17:34)
[2022-01-07] MEDS: ONDANSETRON HCL 4 MG/2 ML VIAL IV PRN ×3 (05:40→17:30)
[2022-01-07] MEDS: ACCU-CHEK COMFORT CURVE STRIP VI SCH ×4 (07:04→22:05)
[2022-01-07] MEDS: InsuLIN REG 1unit/0.01ml Soln (100units/ml) SC SCH ×4 (07:06→22:08)
[2022-01-07 08:59] VITALS: BP 137/63
[2022-01-07] MEDS: levoFLOXacin 750MG 150 ML IV SCH (09:08)
[2022-01-07] MEDS: methylPREDNISolone SOD SUCC 40 MG/ML VL IV SCH ×2 (09:09→22:18)
[2022-01-07] MEDS: RIVAROXABAN 10 MG TAB PO SCH (09:09)
[2022-01-07] MEDS: ENOXAPARIN SOD 40 MG/0.4 ML SYRINGE SC SCH (09:09)
[2022-01-07] MEDS: PANTOPRAZOLE 40 MG TAB PO SCH (09:10)
[2022-01-07] MEDS: CLOPIDOGREL BISULFATE 75 MG TAB PO SCH (09:10)
[2022-01-07] MEDS: ASPirin 81 mg TAB PO SCH (09:10)
[2022-01-07] MEDS: ATENOLOL 50 MG TAB PO SCH ×2 (09:11→22:19)
[2022-01-07] MEDS: INSULIN LANTUS (GLARGINE) 1 /0.01ml (100units/ml) SC SCH (09:20)
[2022-01-07 13:00] VITALS: BP 128/71
[2022-01-07 16:56] VITALS: BP 112/88
[2022-01-07] MEDS: IPRATROPIUM BROM 0.5 MG/2.5ML INH SOL NEB PRN (20:33)
[2022-01-07] MEDS: ALBUTEROL SULF 2.5 MG/0.5ML(0.5%) NEB SOLN NEB PRN (20:33)
[2022-01-07] MEDS: ATORVASTATIN 20 MG TAB PO SCH (22:18)
[2022-01-07 22:48] VITALS: BP_SYST 125; BP_SYST 133; BP_DIAS 51; BP_DIAS 74
[2022-01-08] MEDS: HYDROmorphone HCL 2 MG/ML VL/or syr IV PRN ×6 (00:48→20:52)
[2022-01-08] MEDS: ONDANSETRON HCL 4 MG/2 ML VIAL IV PRN ×3 (02:07→16:10)
[2022-01-08 05:06] VITALS: BP 146/70
[2022-01-08] MEDS: InsuLIN REG 1unit/0.01ml Soln (100units/ml) SC SCH ×4 (06:19→22:33)
[2022-01-08] MEDS: FUROSEMIDE 40 MG/4 ML VIAL IV SCH ×2 (06:19→18:04)
[2022-01-08] MEDS: ACCU-CHEK COMFORT CURVE STRIP VI SCH ×4 (07:02→22:00)
[2022-01-08] MEDS: levoFLOXacin 750MG 150 ML IV SCH (08:35)
[2022-01-08] MEDS: ATENOLOL 50 MG TAB PO SCH ×2 (08:36→22:32)
[2022-01-08] MEDS: RIVAROXABAN 10 MG TAB PO SCH (08:36)
[2022-01-08] MEDS: CLOPIDOGREL BISULFATE 75 MG TAB PO SCH (08:36)
[2022-01-08] MEDS: ASPirin 81 mg TAB PO SCH (08:36)
[2022-01-08] MEDS: PANTOPRAZOLE 40 MG TAB PO SCH (08:36)
[2022-01-08] MEDS: methylPREDNISolone SOD SUCC 40 MG/ML VL IV SCH ×2 (08:36→22:30)
[2022-01-08] MEDS: ENOXAPARIN SOD 40 MG/0.4 ML SYRINGE SC SCH (08:37)
[2022-01-08 09:00] VITALS: BP 143/62
[2022-01-08] MEDS: IPRATROPIUM BROM 0.5 MG/2.5ML INH SOL NEB PRN ×2 (10:00→18:17)
[2022-01-08] MEDS: ALBUTEROL SULF 2.5 MG/0.5ML(0.5%) NEB SOLN NEB PRN ×2 (10:00→18:17)
[2022-01-08] MEDS: INSULIN LANTUS (GLARGINE) 1 /0.01ml (100units/ml) SC SCH (11:04)
[2022-01-08 13:00] VITALS: BP 158/61
[2022-01-08 16:54] VITALS: BP 157/73
[2022-01-08 21:51] VITALS: BP 145/85
[2022-01-08] MEDS: ATORVASTATIN 20 MG TAB PO SCH (22:31)
[2022-01-09] MEDS: HYDROmorphone HCL 2 MG/ML VL/or syr IV PRN ×4 (01:08→12:07)
[2022-01-09 05:19] VITALS: BP 165/60
[2022-01-09] MEDS: FUROSEMIDE 40 MG/4 ML VIAL IV SCH ×2 (06:32→18:00)
[2022-01-09] MEDS: ACCU-CHEK COMFORT CURVE STRIP VI SCH ×3 (06:33→17:00)
[2022-01-09] MEDS: InsuLIN REG 1unit/0.01ml Soln (100units/ml) SC SCH ×3 (06:35→17:00)
[2022-01-09] MEDS: ONDANSETRON HCL 4 MG/2 ML VIAL IV PRN (08:55)
[2022-01-09 09:00] VITALS: BP 139/106
[2022-01-09] MEDS: levoFLOXacin 750MG 150 ML IV SCH (10:20)
[2022-01-09] MEDS: methylPREDNISolone SOD SUCC 40 MG/ML VL IV SCH (10:20)
[2022-01-09] MEDS: ENOXAPARIN SOD 40 MG/0.4 ML SYRINGE SC SCH (10:20)
[2022-01-09] MEDS: PANTOPRAZOLE 40 MG TAB PO SCH (10:21)
[2022-01-09] MEDS: CLOPIDOGREL BISULFATE 75 MG TAB PO SCH (10:21)
[2022-01-09] MEDS: ATENOLOL 50 MG TAB PO SCH (10:21)
[2022-01-09] MEDS: RIVAROXABAN 10 MG TAB PO SCH (10:21)
[2022-01-09] MEDS: ASPirin 81 mg TAB PO SCH (10:22)
[2022-01-09] MEDS: INSULIN LANTUS (GLARGINE) 1 /0.01ml (100units/ml) SC SCH (10:31)
[2022-01-09 13:00] VITALS: BP 172/62
[2022-01-09 13:29] VITALS: BP 139/106
== END 2022-01-09 18:00 | disposition home or self-care (01) | DRG 871 ==
LOC: EDBD 17:49 → ER 17:49 → TELE 21:43 → DOU IN ICU 23:52 → TELE-WESTW 01-05 14:42
PROVIDERS: ADMIT Nurse Practitioner; ATTEND Internal Medicine Pulmonary Disease
PROC: 05HC33Z Insertion of Infusion Device into Left Basilic Vein, Percutaneous Approach (ICD-10-PCS; principal; 2022-01-04)
PROC: B54NZZA Ultrasonography of Left Upper Extremity Veins, Guidance (ICD-10-PCS; 2022-01-04)
DX: A41.9 Sepsis, unspecified organism (principal); J15.6 Pneumonia due to other Gram-negative bacteria; J96.21 Acute and chronic respiratory failure with hypoxia; I50.30 Unspecified diastolic (congestive) heart failure; J44.1 Chronic obstructive pulmonary disease with (acute) exacerbation; Z68.44 Body mass index [BMI] 60.0-69.9, adult; I13.0 Hypertensive heart and chronic kidney disease with heart failure and stage 1 through stage 4 chronic kidney disease, or unspecified chronic kidney disease; J44.0 Chronic obstructive pulmonary disease with (acute) lower respiratory infection; Z90.49 Acquired absence of other specified parts of digestive tract; F41.9 Anxiety disorder, unspecified; E66.01 Morbid (severe) obesity due to excess calories; I25.10 Atherosclerotic heart disease of native coronary artery without angina pectoris; Z79.4 Long term (current) use of insulin; E78.5 Hyperlipidemia, unspecified; E11.22 Type 2 diabetes mellitus with diabetic chronic kidney disease; Z20.822 Contact with and (suspected) exposure to COVID-19; N18.9 Chronic kidney disease, unspecified; Z82.49 Family history of ischemic heart disease and other diseases of the circulatory system; Z82.5 Family history of asthma and other chronic lower respiratory diseases; Z83.3 Family history of diabetes mellitus; Z86.73 Personal history of transient ischemic attack (TIA), and cerebral infarction without residual deficits; Z87.891 Personal history of nicotine dependence
CPT/HCPCS: 36415; 36600; 71045; 80048; 80053; 81001; 82805; 82962; 83605; 83690; 83735; 83880; 84484; 85025; 85379; 85610; 85730; 87081; 93005; 93306; 93970; 94640; 96365; 96375; G0378; J1815; J1956; J2405